=== PATIENT | male | born 1955 | race Caucasian/White ===

== ENCOUNTER 2016-12-06 17:11 | Inpatient (IN) | payer MEDICAID, OTHER ==
[~2016-12-06] VITALS: Ht 175.3 cm; Wt 68.0 kg
--- NOTE | 2016-12-06 17:41 | ER.PDOC ---
General Chief Complaint: Requesting Medical Care Stated Complaint: MEDICAL CLEARANCE Time seen by MD: 17:39 History of Present Illness Initial Comments Medical clearance to go to [facility] for Bipolar Severity: moderate Associated Symptoms: Depressed Allergies: Coded Allergies: acetaminophen (Verified Allergy, Mild, 12/06/16) PT CAN'T TAKE TYLENOL DUE TO CIRRHOSIS Past Medical History Medical History: COPD, GERD, hypertension Surgical History: hip, knee, shoulder Social History Smoking: non-smoker Alcohol Use: occassionally Drug Use: none Review of Systems Constitutional: no symptoms reported Respiratory: no symptoms reported Cardiovascular: no symptoms reported Genitourinary: no symptoms reported Psychiatric/Neurological: see HPI All Other Systems: Reviewed and Negative Physical Exam General Appearance: No acute distress, Alert Neck: Non-Tender, Full Range of Motion, Supple, Normal Inspection Respiratory: chest non-tender, lungs clear, normal breath sounds, no respiratory distress, no accessory muscle use Cardiovascular: Normal Peripheral Pulses, Regular Rate, Rhythm, No Edema, No Gallop, No JVD, No Murmur Gastrointestinal: Normal Bowel Sounds, No Organomegaly, No Pulsatile Mass, Non Tender, Soft Extremities: Non-Tender, Normal Range of Motion, No Evidence of Trauma, No Edema Neurological/Psychiatric: Alert, Normal Mood/Affect, Calm, consultant internship II-XII NML as Tested, Oriented x 3, Depressed Affect Appearance/Memory/Insight: Appropriate Appearance Behavior/Eye Contact/Speech: Cooperative Thoughts/Hallucinations: Normal Thought Pattern Results/Orders Results/Orders Laboratory Tests Test 12/06/16 17:50 White Blood Count 5.7 10^3/uL (4.5-11.0) Red Blood Count 4.50 10^6/uL (4.50-5.90) Hemoglobin 14.0 g/dL (13.9-16.3) Hematocrit 41.0 % (37.0-53.0) Mean Corpuscular Volume 91.1 fL (78-100) Mean Corpuscular Hemoglobin 31.1 pg (26-34) Mean Corpuscular Hemoglobin Concent 34.1 g/dL (33-37) Red Cell Distribution Width 14.3 % (11.5-14.5) Platelet Count 153 10^3/uL (150-400) Mean Platelet Volume 9.5 fL (7.8-11.0) Neutrophils (%) (Auto) 40.4 % (41.0-85.0) Lymphocytes (%) (Auto) 37.3 % (24.0-44.0) Monocytes (%) (Auto) 18.5 % (5.0-12.0) Neutrophils # (Auto) 2.3 10^3/uL (1.8-7.7) Lymphocytes # (Auto) 2.1 10^3/uL (1.0-4.8) Monocytes # (Auto) 1.1 10^3/uL (0.3-0.8) Absolute Immature Granulocyte (auto 0.01 10^3 u/L (0-2) Eosinophils % 3.3 % (0.0-5.0) Basophils % 0.3 % (0.0-0.2) Basophils # 0.0 10^3/uL (0.0-0.1) Eosinophil Count 0.2 10^3/uL (0.0-0.2) Prothrombin Time 11.6 SEC (9.8-11.9) Prothromb Time International Ratio 1.1 Activated Partial Thromboplast Time 26.7 SEC (24.67-30.72) Sodium Level 142 mmol/L (132-145) Potassium Level 2.7 mmol/L (3.6-5.2) Chloride Level 106.0 mmol/L (96-109) Carbon Dioxide Level 26.9 mmol/L (20.0-32) Anion Gap 11.8 Blood Urea Nitrogen 6 mg/dL (7-18) Creatinine 1.05 mg/dL (0.59-1.40) Estimated GFR () 86.3 (>/=60) BUN/Creatinine Ratio 5.0 Glucose Level 42 mg/dL (70-110) Hemoglobin A1c 5.6 % (4.2-6.2) Calcium Level 9.4 mg/dL (8.4-10.5) Total Bilirubin 0.8 mg/dL (0.2-1.0) Aspartate Amino Transf (AST/SGOT) 56 U/L (0-35) Alanine Aminotransferase (ALT/SGPT) 32 U/L (12-78) Alkaline Phosphatase 88 U/L (50-136) Total Creatine Kinase 44 U/L (39-308) Creatine Kinase MB 1.3 ng/mL (0.5-3.6) Troponin I < 0.02 ng/mL (0.00-0.05) C-Reactive Protein 0.42 mg/dL (0.00-5.00) Pro-B-Type Natriuretic Peptide 133 pg/mL (0-125) Total Protein 8.0 g/dL (6.4-8.2) Albumin 3.3 g/dL (3.4-5.0) Globulin 4.7 Triglycerides Level 63 mg/dL (20-200) Cholesterol Level 130 mg/dL (120-240) LDL Cholesterol, Calculated 76.4 VLDL Cholesterol 12.6 HDL Cholesterol 41 mg/dL (32-96) Cholesterol Ratio (LDL/HDL) 1.8 Cholesterol/HDL Ratio [id number] Thyroid Stimulating Hormone (TSH) 1.183 mIU/mL (0.358-3.740) Valproic Acid (Depakene) Level < 3 ug/mL (50-100) Juda Level < 0.20 mmol/L (0.6-1.2) Percent Immature Gran (Cell Imm) 0.20 % (0.00-0.50) EKG/XRAY/CT/US EKG: NSR XRAY: chest (Nothing acute) Departure Time of Disposition: 18:52 Disposition: 09 ADMITTED INPATIENT Impression: Primary Impression: Bipolar 1 disorder Additional Impression: Hypokalemia Condition: Stable Referrals: UNDEFINED,PHYSICIAN (PCP) PRIMARY CARE PROVIDER Comments Admitted by Dr. Meier, spoke to Dr. Vikash ABRAHAM,DULCE Porter MD Dec 06, 2016 17:41
[2016-12-06 17:55] LABS: BASOPHIL % 0.3 % (0.0-0.2); EOSINOPHIL # 0.2 10^3/uL (0.0-0.2); EOSINOPHIL % 3.3 % (0.0-5.0); LYMPHOCYTES # 2.1 10^3/uL (1.0-4.8); LYMPHOCYTES % 37.3 % (24.0-44.0); MEAN CELL HGB 31.1 pg (26-34); MEAN CELL HGB CONCENTRATION 34.1 g/dL (33-37); MEAN CORP VOLUME 91.1 fL (78-100); MEAN PLATELET VOLUME 9.5 fL (7.8-11.0); MONOCYTES # 1.1 10^3/uL (0.3-0.8); MONOCYTES % 18.5 % (5.0-12.0); NEUTROPHIL # 2.3 10^3/uL (1.8-7.7); NEUTROPHILS % 40.4 % (41.0-85.0); RED CELL DISTRIBUTION WIDTH 14.3 % (11.5-14.5); WHITE BLOOD CELL 5.7 10^3/uL (4.5-11.0)
[2016-12-06 18:21] LABS: ALANINE AMINOTRANSFERASE 32 U/L (12-78); ALKALINE PHOSPHATASE 88 U/L (50-136); ASPARTATE AMINO TRANSFERASE 56 U/L (0-35); CALCIUM 9.4 mg/dL (8.4-10.5); CARBON DIOXIDE 26.9 mmol/L (20.0-32); CHOLESTEROL 130 mg/dL (120-240); HDL CHOLESTEROL 41 mg/dL (32-96)
--- NOTE | 2016-12-06 18:22 | DIREP ---
PROCEDURE:CHEST 1 VIEW COMPARISON:[facility], CR, XRAY CHEST SINGLE VW, 11/14/2016, 09:24 AM. [facility], CR, XRAY CHEST SINGLE VW, 11/14/2016, 08:18 AM. [facility], CR, XRAY CHEST SINGLE VW, 03/26/2016, 03:06 PM. INDICATIONS:Medical clearance FINDINGS: LUNGS/PLEURA:Prominence of the interstitial markings, especially in the lung bases. No other significant pulmonary parenchymal abnormalities. No large effusions. VASCULATURE:Normal. Unremarkable pulmonary vasculature. CARDIAC:Normal. No cardiac silhouette abnormality or cardiomegaly. MEDIASTINUM:Normal. No visible mass or adenopathy. BONES:Normal. No fracture or visible bony lesion. OTHER:Negative. CONCLUSION:Prominent interstitial markings which could be acute or chronic. Otherwise no acute cardiopulmonary abnormalities. Dictated by: Darrel Crawford M.D. on 12/06/2016 at 06:19 PM
[2016-12-06 18:24] LABS: GLUCOSE 42 mg/dL (70-110)
[2016-12-06] MEDS ORDERED: POTASSIUM CHLORIDE ONE (18:52)
[2016-12-06] MEDS ORDERED: KLOR-CON 10 PO ONE (18:54)
--- NOTE | 2016-12-06 18:54 | PRM.ACF1 ---
Date and Time Date and Time Time: 18:54 Admission Criteria Forms PSYCHIATRIC DISORDERS Clinical Indications for Inpatient Care (Place 'X' for any and all applicable criteria): Ongoing inpatient care may be needed for 1 or more of the following(1)(2)(3)(4)( 6)(7)(8): [x ]I. Danger to self or others not manageable at lower level of care. [ ]II. Grave disability (eg, inability to perform self care necessary at lower level of care) [ ]III. Agitation or inappropriate behavior interfering with care for primary condition (eg, attempting to discontinue lines or drains prematurely, unable to cooperate with respiratory care) [ ]IV. Severe disability or disorder indicated by ALL of the following: [ ]a) Severe behavioral health disorder-related symptoms or condition indicated by 1 or more of the following: [ ]i) Severe problem with cognition, memory, judgment, or impulse control [ ]ii) Severe clinical manifestations (eg, hallucinations, delusions, other acute psychotic symptoms, sunny, extreme agitation or anxiety) [ ]b) Patient management at lower level of care is not feasible until acute intervention or modification is initiated. Extended stay beyond goal length of stay for the primary condition may be needed untilALLof the following are present(1)(2)(3)(4)722)(23): [ ]a) Danger to self or others is absent or manageable at lower level of care [ ]b) Behavior crisis management, including physical or chemical restraints, is required and is not available at a lower level of care. [ ]c) Behavioral symptoms (e.g., agitation, somnolence, inappropriate behavior) are present, and are not manageable at a lower level of care. [ ]d) Patient cannot understand follow-up treatment and crisis plan. [ ]e) Provider and supports are sufficiently available at lower level of care. [ ]f) Patient can participate (e.g., verify absence of plan for harm) and is in needed of monitoring. The original [facility] [employer] content created by [facility] has been revised. The portions of the content which have been revised are identified through the use of italic text, and [facility] has neither reviewed nor approved the modified material. All other unmodified content is copyright [facility]. Please see references footnoted in the original [facility] edition 2014 DULCE ABRAHAM MD Dec 06, 2016 18:54
[2016-12-06] MEDS ORDERED: KLOR-CON 10 PO STA (18:55)
--- NOTE | 2016-12-06 19:00 | NUR ---
STATUS PT SITTING UP, TALKATIVE, CONVERSATIONAL, [place] AIDE IN RM WITH PT
--- NOTE | 2016-12-06 19:39 | NUR ---
ADMIT PROCESS CALLED NEELAM OLIVA, SPOKE WITH KRISTEL BARR, MOMO TO CALL BACK CONCERNING ADMIT STATUS
[2016-12-06] MEDS ORDERED: ATIVAN ONE (19:59)
[2016-12-06] MEDS ORDERED: HALDOL ONE (20:00)
[2016-12-06] MEDS ORDERED: BENADRYL ONE (20:00)
[2016-12-06] MEDS ORDERED: IPRA0.2S34 IH (20:25)
[2016-12-06] MEDS ORDERED: DULO60CA7 PO (20:25)
[2016-12-06] MEDS ORDERED: ASCO500T8 PO (20:25)
[2016-12-06] MEDS ORDERED: FLUT1DIS3 IH (20:25)
[2016-12-06] MEDS ORDERED: LACT10SO PO (20:25)
[2016-12-06] MEDS ORDERED: PANT40TA5 PO (20:25)
[2016-12-06] MEDS ORDERED: TRIA15CR TP (20:25)
[2016-12-06] MEDS ORDERED: GABA300C10 PO (20:25)
[2016-12-06] MEDS ORDERED: QUET25TA5 PO (20:25)
[2016-12-06] MEDS ORDERED: FOLI1TAB21 PO (20:25)
[2016-12-06] MEDS ORDERED: AMIT100T PO (20:25)
[2016-12-06] MEDS ORDERED: LORA10TA75 PO (20:25)
[2016-12-06] MEDS ORDERED: ALBU2.5V2 IH (20:25)
[2016-12-06] MEDS ORDERED: MORP20SO PO (20:27)
--- NOTE | 2016-12-06 20:36 | NUR ---
DR NIDHI TERRELL CONFIRMED THAT HE HAD RECEIVED DOC TO DOC REPORT FROM DR MBA. ULLOA TO PROCEED WITH ADMIT. MOMO ROBERSON, KRISTEL UPDATED THAT MED REC WAS IN THE COMPUTER AND DOC TO DOC REPORT CONFIRMED. MOMO TO CALL BACK TO ER WHEN READY FOR ADMIT,
[2016-12-06 21:10] LABS: APPEARANCE,URINE CLEAR (CLEAR); BILIRUBIN,URINE NEGATIVE (NEGATIVE); UA COLOR YELLOW (YELLOW); UROBILINOGEN,URINE NORMAL (NEGATIVE)
--- NOTE | 2016-12-06 21:10 | NUR ---
MEAL PT PROVIDED WITH SODA AND MEAL.
[2016-12-06 21:28] LABS: UR BENZODIAZEPINE QUAL NEGATIVE (NEGATIVE); UR COCAINE QUAL NEGATIVE (NEGATIVE)
--- NOTE | 2016-12-06 21:30 | NUR ---
STATUS PT UPSET. YELLING. NOT WANTING TO STAY. WALKED OUT OF RM 8, ROMEL, HOUSE SUP WITH PT, PT WALKED OUT OF ER DOORS, [place] [employer] CONTACTED.
--- NOTE | 2016-12-06 21:50 | NUR ---
STATUS PT IN PARKING LOT, DR TERRELL, ROMEL, WAYNE SUP, TITUS, SECURITY AND [employer] [employer] WITH PT,
--- NOTE | 2016-12-06 22:00 | NUR ---
Behaviors pt arrived on unit order received to give Haldol 5mg, Ativan 2mg,Benadryl 25mg IM stat per who is on unit at this time pt received IM injections in right and left deltoid using aspetic tech. by Ramiro RN and Clarisa pt. is cursing and verbally abusive.
[2016-12-06] MEDS ORDERED: HALDOL IM STA (22:13)
[2016-12-06] MEDS ORDERED: THORAZINE ONE (22:13)
[2016-12-06] MEDS ORDERED: BENADRYL IM STA (22:13)
--- NOTE | 2016-12-06 22:25 | NUR ---
Behaviors pt cont to exhibit inappropriate behavior remains on unit and order received to give Thorazine 50mg IM now, Ramiro RN admiister IM injection in right deltoid. pt cont to curse at staff and police matron
[2016-12-06] MEDS ORDERED: ATIVAN IM PRN (22:30)
[2016-12-06] MEDS ORDERED: THORAZINE IM ONE (22:30)
--- NOTE | 2016-12-06 23:00 | NUR ---
ARRIVAL PT. ARRIVED ON UNIT AT 2200,IN HANDCUFFS,ACCOMPANIED BY THREE POLICE OFFICERS,TWO FRENCH COMBER'S DEPUTIES, TITUS,SOLAR BUSINESS DEVELOPER ,METEOROLOGY INSTRUCTOR ROMEL Caballero RN. AND DR. TERRELL. PT. WAS YELLING LOUDLY SAYING HE DID NOT WANT TO BE HERE AND THAT HE WAS NOT GOING TO GO INTO HIS ROOM. PT. WAS THREATENING TO HIT , KICK AND SPIT ON STAFF. PT. CURSING AND YELLING,MAKING INAPPROPRIATE SEXUAL REMARKS TO STAFF. PT. VERY INTRUSIVE AND NOT REDIRECTABLE. PER METEOROLOGY INSTRUCTOR,ROMEL Caballero RN PT. ELOPED FROM ER TO THE HOSPITAL PARKING LOT. POLICE WAS SUMMONED. PT. WAS AGGRESSIVE TO POLICE AND DEPUTIES. PT. WAS TASED TIMES TWO. WHEN PT. ON UNIT EXHIBITING INAPPROPRIATE BEHAVIORS STAT MEDICATIONS WAS ORDERED BY DR. TERRELL,WHO WAS ON PRESENT ON UNIT,SEE NURSE'S NOTED.PT. CONTINUED TO EXHIBIT SAME BEHAVIORS ABOVE AND ORDERED RECEIVED FROM DR. TERRELL TO PLACE PT. IN SECLUSION. PT. HIT AND KICKED THE CONLEY OF SECLUSION ROOM AND YELLED LOUDLY. DR. WARD WAS NOTIFIED OF PT.'S ARRIVAL,BEHAVIORS , SECLUSION AND VERBAL ORDERS RECEIVED FOR HALDOL 5 MG PO OR IM Q 6 HOURS PRN FOR AGITATION AND ATIVAN 1 MG PO OR IM Q 6 HOURS PRN FOR AGITATION. MAURICE OLMSTEAD RN, [employer]ODUCTS MAKER NOTIFIED OF PT. ARRIVAL , BEHAVIORS AND SECLUSION. Addendum: 12/07/16 at 0232 by Lis Torres RN RN DR. TERRELL PRESENT ON UNIT AND SAW PT. ONE HOUR AFTER BEING IN SECLUSION.
[2016-12-07] MEDS ORDERED: HALDOL PO PRN ×2 (00:30→12:00)
[2016-12-07] MEDS ORDERED: ATIVAN PO PRN ×2 (00:30→12:00)
[2016-12-07] MEDS ORDERED: HALDOL IM PRN ×3 (00:30→12:00)
[2016-12-07] MEDS ORDERED: ATIVAN IM PRN ×2 (01:00→12:00)
--- NOTE | 2016-12-07 02:44 | NUR ---
ADMISSION ASSESSMENT THIS NURSE WAS UNABLE TO COMPLETE PT.'S ADMISSION ASSESSMENT BECAUSE PT. WAS UNCOOPERATIVE AND NOT REDIRECTABLE. WILL REPORT THIS TO ONCOMING SHIFT IN AM.
[2016-12-07] MEDS: ASPIRIN PO STA ×2 (03:28→04:59)
[2016-12-07] MEDS: D5W-1/2NS/KCL 40MEQ 1,000 ML IV SCH ×2 (03:30→07:26)
[2016-12-07] MEDS ORDERED: MORPHINE SULFATE IV PRN (03:30)
[2016-12-07] MEDS ORDERED: MYLANTA PO PRN (03:30)
--- NOTE | 2016-12-07 04:08 | PCM.HP ---
History of Present Illness Reason for Visit: psychosis, threatening to self others Past Medical History Pulmonary: COPD Hepatobiliary: Cirrhosis, Hep A/B/C Psychiatric: Bipolar, Psychosis Past Social History Smoke: 1 pack per day Alcohol: heavy Drugs: Cocaine2, Other Lives: Homeless Travel Hx EBOLA RISK:Travel to/contact w: No Is pt experiencing any Ebola s: No Review of Systems Constitutional: Other (unable to attend due to violent threat to others) Allergies: Coded Allergies: acetaminophen (Verified Allergy, Mild, 12/06/16) PT CAN'T TAKE TYLENOL DUE TO CIRRHOSIS Scheduled Ascorbic Acid (Vitamin C), 500 MG PO DAILY, (Reported) Duloxetine Hcl (Cymbalta), 60 MG PO DAILY, (Reported) Fluticasone/Salmeterol (Advair 250-50 Diskus), 1 EACH IH BID, (Reported) Folic Acid (Folic Acid), 1 MG PO DAILY, (Reported) Gabapentin (Gabapentin), 300 MG PO HS, (Reported) Ipratropium [place] (Ipratropium [place]), 0.5 MG IH Q6HR, (Reported) Lactulose (Lactulose), 20 GM PO Q8HR, (Reported) Loratadine (Claritin), 10 MG PO DAILY, (Reported) Morphine Sulfate (Morphine Sulfate), 10 MG PO Q6, (Reported) Pantoprazole Sodium (Pantoprazole Sodium), 40 MG PO DAILY, (Reported) Triamcinolone Acetonide (Triamcinolone Acetonide), 15 GM TP BID, (Reported) Scheduled PRN Albuterol Sulfate (Albuterol Sulfate), 2.5 MG IH Q4 PRN for WHEEZING, (Reported) Discontinued Medications Amitriptyline Hcl (Amitriptyline Hcl), 100 MG PO HS, (Reported) Discontinued Reason: Discontinue Quetiapine Fumarate (Seroquel), 25 MG PO BID, (Reported) Discontinued Reason: Discontinue VTE VTE Risk Score VTE Risk: Score 0-1 = Low Risk (Aggressive mobilization; early ambulation; no VTE prophylaxis required) Score 2: Moderate Risk (Intermittent/Pneumatic Compression Device OR Lovenox/Heparin/Coumadin) Score 3-4: High Risk (Intermittent/Pneumatic Compression Device AND Lovenox/Heparin/Coumadin) Score > or =5: Highest Risk (Intermittent/Pneumatic Compression Device AND Lovenox/Heparin/Coumadin) Antico:Hep/LMWH/Coum/Xarelto: No Mechanical device ordered: No VTE VTE Present on Admission: No Currently receiving anticoagul: No Exam Vital Signs Vital Signs Date Time Temp Pulse Resp B/P (MAP) Pulse Ox O2 Delivery O2 Flow Rate FiO2 12/06/16 21:30 83 12 96 12/06/16 17:24 97.6 General Appearance: Alert, severe distress, Other (violent. Fighting with police officers. Handcuffed. In wheelchair.) HEENT: Other Respiratory: Other (Limited exam due to violent behavior) Cardiovascular: Other Abdominal: Other Extremities: No cyanosis, Other Neuro: Other Psych/Mental Status: Other Assessment/Plan Assessment/Plan Assessment/Plan Orders - GUERITA SUH MD Haloperidol Lactate (Haldol) (12/06/16 22:13) Lorazepam (Ativan) (12/06/16 22:30) Diphenhydramine Hcl (Benadryl) (12/06/16 22:13) Chlorpromazine Hcl (Thorazine) (12/06/16 22:30) Resuscitation Status (12/06/16 23:21) Social Service Consult (12/06/16 23:21) Hospitalist Consult (12/06/16 23:21) Folic Acid (Folic Acid) (12/07/16 09:00) Gabapentin (Neurontin) (12/07/16 21:00) Ipratropium [place] (Atrovent) (12/07/16 06:00) Lactulose (Cephulac) (12/07/16 06:00) Loratadine (Claritin) (12/07/16 09:00) Pantoprazole Sodium (Protonix) (12/07/16 09:00) (Nf) Ascorbic Acid (Vitamin C) (12/07/16 09:00) Creatine Kinase (12/07/16 03:28) Creatine Kinase (12/07/16 07:28) Creatine Kinase (12/07/16 11:28) Creatine Kinase (12/07/16 15:28) Basic Metabolic Panel (12/07/16 03:28) Basic Metabolic Panel (12/07/16 07:28) Basic Metabolic Panel (12/07/16 11:28) Basic Metabolic Panel (12/07/16 15:28) Urinalysis (12/07/16 03:28) Magnesium (12/07/16 03:28) Uric Acid (12/07/16 04:00) Uric Acid (12/07/16 08:00) Phosphorus (12/07/16 04:00) Phosphorus (12/07/16 08:00) Prealbumin (12/07/16 03:28) V/S Q4hr While Awake (12/07/16 03:28) Bedrest With Brp (12/07/16 03:28) Saline Lock (12/07/16 03:28) Saline Lock Flush (12/07/16 03:28) Ekg-Routine (12/07/16 03:28) Ekg-Routine (12/07/16 07:28) Creatine Kinase Mb (12/07/16 06:00) Creatine Kinase Mb (12/07/16 12:00) Creatine Kinase Mb (12/07/16 18:00) Lactate Dehydrogenase (12/07/16 06:00) Lactate Dehydrogenase (12/07/16 12:00) Troponin I (12/07/16 06:00) Troponin I (12/07/16 14:00) Xr Chest 1v (12/07/16 03:28) Mag Hydrox/Al Hydrox/Simeth (Mylanta) (12/07/16 03:30) Morphine Sulfate (Morphine Sulfate) (12/07/16 03:30) Potassium Chloride/D5-0.45nacl (D5w-1/2n (12/07/16 03:30) Aspirin (Aspirin) (12/07/16 03:28) Aspirin (Aspirin Ec) (12/07/16 09:00) Surgical Consult (12/07/16 03:51) First Vital Signs Date Time Temp Pulse Resp B/P (MAP) Pulse Ox O2 Delivery O2 Flow Rate FiO2 12/06/16 17:24 97.6 10 20 95 Last Vital Signs Date Time Temp Pulse Resp B/P (MAP) Pulse Ox O2 Delivery O2 Flow Rate FiO2 12/06/16 21:30 83 12 96 12/06/16 17:24 97.6 Laboratory Tests Test 12/06/16 17:50 12/06/16 18:55 12/06/16 20:17 White Blood Count 5.7 10^3/uL Red Blood Count 4.50 10^6/uL Hemoglobin 14.0 g/dL Hematocrit 41.0 % Mean Corpuscular Volume 91.1 fL Mean Corpuscular Hemoglobin 31.1 pg Mean Corpuscular Hemoglobin Concent 34.1 g/dL Red Cell Distribution Width 14.3 % Platelet Count 153 10^3/uL Mean Platelet Volume 9.5 fL Neutrophils (%) (Auto) 40.4 % Lymphocytes (%) (Auto) 37.3 % Monocytes (%) (Auto) 18.5 % Neutrophils # (Auto) 2.3 10^3/uL Lymphocytes # (Auto) 2.1 10^3/uL Monocytes # (Auto) 1.1 10^3/uL Absolute Immature Granulocyte (auto 0.01 10^3 u/L Eosinophils % 3.3 % Basophils % 0.3 % Basophils # 0.0 10^3/uL Eosinophil Count 0.2 10^3/uL Prothrombin Time 11.6 SEC Prothromb Time International Ratio 1.1 Activated Partial Thromboplast Time 26.7 SEC Sodium Level 142 mmol/L Potassium Level 2.7 mmol/L Chloride Level 106.0 mmol/L Carbon Dioxide Level 26.9 mmol/L Anion Gap 11.8 Blood Urea Nitrogen 6 mg/dL Creatinine 1.05 mg/dL Estimated GFR () 86.3 BUN/Creatinine Ratio 5.0 Glucose Level 42 mg/dL Hemoglobin A1c 5.6 % Calcium Level 9.4 mg/dL Total Bilirubin 0.8 mg/dL Aspartate Amino Transf (AST/SGOT) 56 U/L Alanine Aminotransferase (ALT/SGPT) 32 U/L Alkaline Phosphatase 88 U/L Total Creatine Kinase 44 U/L Creatine Kinase MB 1.3 ng/mL Troponin I < 0.02 ng/mL C-Reactive Protein 0.42 mg/dL Pro-B-Type Natriuretic Peptide 133 pg/mL 108 pg/mL Total Protein 8.0 g/dL Albumin 3.3 g/dL Globulin 4.7 Triglycerides Level 63 mg/dL Cholesterol Level 130 mg/dL LDL Cholesterol, Calculated 76.4 VLDL Cholesterol 12.6 HDL Cholesterol 41 mg/dL Cholesterol Ratio (LDL/HDL) 1.8 Cholesterol/HDL Ratio 3.199453 Thyroid Stimulating Hormone (TSH) 1.183 mIU/mL Valproic Acid (Depakene) Level < 3 ug/mL Dutton Level < 0.20 mmol/L Percent Immature Gran (Cell Imm) 0.20 % Urine Collection Type UNKNOWN Urine Color YELLOW Urine Appearance CLEAR Urine Bilirubin NEGATIVE MG/DL Urine Ketones NEGATIVE Urine Specific [place] 1.010 Urine pH 6 Urine Protein NEGATIVE Urine Urobilinogen NORMAL Urine Nitrate NEGATIVE Urine Leukocyte Esterase NEGATIVE Urine Blood NEGATIVE Urine Glucose NORMAL Opiates Screen POSITIVE Barbiturate Screen NEGATIVE Urine Tricyclic Antidepressants NEGATIVE Phencyclidine (PCP) Screen NEGATIVE Amphetamines Screen NEGATIVE Benzodiazepines Screen NEGATIVE Cocaine Screen NEGATIVE Ur Tetrahydrocannabinol (THC) Scrn NEGATIVE Current Medications Medications (Trade) Dose Ordered Sig/Mohini Route PRN Reason Start Time Stop Time Status Last Admin Dose Admin Potassium Chloride (Potassium Chloride) 40 meq STK-MED ONCE .ROUTE 12/06/16 18:52 12/06/16 18:54 DC Potassium Chloride (Klor-Con 10) 10 meq STK-MED ONCE PO 12/06/16 18:54 12/06/16 18:55 DC Potassium Chloride (Klor-Con 10) 40 meq STAT STAT PO 12/06/16 18:55 12/06/16 18:57 DC 12/06/16 18:58 Lorazepam (Ativan) 2 mg STK-MED ONCE .ROUTE 12/06/16 19:59 12/06/16 22:00 DC Haloperidol Lactate (Haldol) 5 mg STK-MED ONCE .ROUTE 12/06/16 20:00 12/06/16 22:01 DC Diphenhydramine HCl (Benadryl) 50 mg STK-MED ONCE .ROUTE 12/06/16 20:00 12/06/16 22:01 DC Chlorpromazine HCl (Thorazine) 25 mg STK-MED ONCE .ROUTE 12/06/16 22:13 12/06/16 22:14 DC Haloperidol Lactate (Haldol) 5 mg STAT STAT IM 12/06/16 22:13 12/06/16 22:14 UNV 12/06/16 22:19 Lorazepam (Ativan) 2 mg Q4HR PRN IM AGITATION 12/06/16 22:30 01/05/17 22:29 UNV 12/06/16 22:18 Diphenhydramine HCl (Benadryl) 25 mg STAT STAT IM 12/06/16 22:13 12/06/16 22:14 UNV 12/06/16 22:18 Chlorpromazine HCl (Thorazine) 50 mg STAT ONCE IM 12/06/16 22:30 12/06/16 22:31 UNV 12/06/16 22:26 Quetiapine Fumarate (Seroquel) 50 mg BID PO 12/07/16 09:00 01/06/17 08:59 UNV Amitriptyline HCl (Elavil) 100 mg HS PO 12/07/16 21:00 01/06/17 20:59 UNV Haloperidol (Haldol) 5 mg Q6 PRN PO AGITATION 12/07/16 00:30 01/06/17 00:29 UNV Haloperidol Lactate (Haldol) 5 mg Q6 PRN IM AGITATION 12/07/16 00:30 01/06/17 00:29 UNV Lorazepam (Ativan) 1 mg Q6HR PRN PO AGITATION 12/07/16 00:30 01/06/17 00:29 UNV Haloperidol Lactate (Haldol) 1 mg Q6 PRN IM AGITATION 12/07/16 00:30 01/06/17 00:29 UNV Lorazepam (Ativan) 1 mg Q6 PRN IM AGITATION 12/07/16 01:00 01/06/17 00:59 UNV Folic Acid (Folic Acid) 1 mg DAILY PO 12/07/16 09:00 01/06/17 08:59 UNV Gabapentin (Neurontin) 300 mg HS PO 12/07/16 21:00 01/06/17 20:59 UNV Ipratropium [place] (Atrovent) 0.5 mg Q6HR IH 12/07/16 06:00 01/06/17 05:59 UNV Lactulose (Cephulac) 20 gm Q8HR PO 12/07/16 06:00 01/06/17 05:59 UNV Loratadine (Claritin) 10 mg DAILY PO 12/07/16 09:00 01/06/17 08:59 UNV Pantoprazole Sodium (Protonix) 40 mg DAILY PO 12/07/16 09:00 01/06/17 08:59 UNV Al Hydroxide/Mg Hydroxide (Mylanta) 30 ml Q2HR PRN PO heartburn 12/07/16 03:30 01/06/17 03:29 UNV Morphine Sulfate (Morphine Sulfate) 2 mg PRN PRN IV chest pain 12/07/16 03:30 01/06/17 03:29 UNV Potassium Chloride/Dextrose/ Sod Cl 1,000 ml @ 250 mls/hr Q4H IV 12/07/16 03:30 12/07/16 11:29 UNV Aspirin (Aspirin) 324 mg STAT STAT PO 12/07/16 03:28 12/07/16 03:29 UNV Aspirin (Aspirin Ec) 81 mg DAILY PO 12/07/16 09:00 01/06/17 08:59 UNV Problems: (1) Psychosis Status: Acute ICD Code: F29 - Unspecified psychosis not due to a substance or known physiological condition SNOMED: 72609787 (2) Bipolar 1 disorder Status: Acute ICD Code: F31.9 - Bipolar disorder, unspecified SNOMED: 208183042 (3) Severe protein-calorie malnutrition Status: Acute ICD Code: E43 - Unspecified severe protein-calorie malnutrition SNOMED: 786444703 (4) Polysubstance abuse Permanent Comment: history of cocaine and other substance abuse per medical records. On the submission is screening drug screen test only showed opioids. However the screening test is not particularly reliable Last Edited By: Guerita Suh MD on Dec 07, 2016 04:18 Status: Acute ICD Code: F19.10 - Other psychoactive substance abuse, uncomplicated SNOMED: 083667788 (5) Hypokalemia Permanent Comment: noted in the emergency room. Patient was given potassium for repletion. Recheck BMP when it is safe to do so. Last Edited By: Guerita Suh MD on Dec 07, 2016 04:18 Status: Acute ICD Code: E87.6 - Hypokalemia SNOMED: 33875173 (6) Violent behavior Status: Acute ICD Code: R45.6 - Violent behavior SNOMED: 951778466 (7) Behavior problem, adult Status: Acute ICD Code: F69 - Unspecified disorder of adult personality and behavior SNOMED: 103324855666735 (8) Threatening to self Permanent Comment: psychotic. Does not know limits. Aggressive and threatening to everyone around him. fought with police officers. Last Edited By: Guerita Suh MD on Dec 07, 2016 04:17 Status: Acute SEVERITY: SEVERE PERSISTENT ICD Code: R45.89 - Other symptoms and signs involving emotional state SNOMED: 487139912 (9) Threatening to others Status: Acute SEVERITY: SEVERE PERSISTENT ICD Code: R45.89 - Other symptoms and signs involving emotional state SNOMED: 225930868 (10) At risk for elopement Status: Acute SEVERITY: SEVERE PERSISTENT COMPLICATION TYPE: W/ ACUTE EXACERBATION ICD Code: Z91.89 - Other specified personal risk factors, not elsewhere classified SNOMED: 995884557 (11) Foreign body (FB) in soft tissue Status: Acute ICD Code: M79.5 - Residual foreign body in soft tissue SNOMED: 270809150 (12) Electric shock caused by Taser used in legal intervention Permanent Comment: tasered deployed twice in what appeared to be the chest area Last Edited By: Guerita Suh MD on Dec 07, 2016 04:15 Status: Acute ICD Code: T75.4XXA - Electrocution, initial encounter; - Legal intervention involving other specified means, suspect injured, initial encounter SNOMED: 442456070, 564368938, 022929476 (13) Hypoglycemia Permanent Comment: questionable hypoglycemia [address] Rodríguez recheck one of the safe to do so. Give IV fluids with D5 half normal saline with the safe to do so Last Edited By: Guerita Suh MD on Dec 07, 2016 04:16 Status: Acute ICD Code: E16.2 - Hypoglycemia, unspecified SNOMED: 699976411 (14) Cirrhosis of liver without ascites Status: Chronic ICD Code: K74.60 - Unspecified cirrhosis of liver SNOMED: 64589759 (15) Chronic hepatitis B with cirrhosis Status: Chronic ICD Code: B18.1 - Chronic viral hepatitis B without delta-agent; K74.60 - Unspecified cirrhosis of liver SNOMED: 45911514, 509356252 Patient History: Problem Qualifiers (1) Electric shock caused by Taser used in legal intervention: Encounter type: initial encounter Qualified Codes: T75.4XXA - Electrocution, initial encounter; Y35.3A - Legal intervention involving other specified means , suspect injured, initial encounter GUERITA SUH MD Dec 07, 2016 04:08
[2016-12-07 05:08] VITALS: BP 103/57
[2016-12-07 05:10] LABS: CALCIUM 8.8 mg/dL (8.4-10.5); CARBON DIOXIDE 23.2 mmol/L (20.0-32); GLUCOSE 109 mg/dL (70-110)
--- NOTE | 2016-12-07 05:34 | NUR ---
rest Pt. resting in bed with eyes closed at this time Radiology ,Iva,has been notified of stat chest xr order.
[2016-12-07] MEDS: ATROVENT IH SCH ×2 (05:48→06:00)
[2016-12-07] MEDS: CEPHULAC PO SCH ×3 (05:48→13:50)
--- NOTE | 2016-12-07 06:07 | NUR ---
hep lock Hep lock attempted by Anat Caballero RN. times two unsuccessfully using aseptic technique. Pt. cursed and yelled at nurse .
--- NOTE | 2016-12-07 06:12 | NUR ---
Medication pt refused po medication this a.m. also he refused his breathing treatment only would take a little of treatment Coco HUMPHRIES is aware
--- NOTE | 2016-12-07 06:17 | DIREP ---
PROCEDURE:CHEST 1 VIEW COMPARISON:[facility], CR, XRAY CHEST SINGLE VW, 11/14/2016, 08:18 AM. [facility], CR, XRAY CHEST SINGLE VW, 03/26/2016, 03:06 PM. [facility], CR, XRAY CHEST SINGLE VW, 12/06/2016, 05:03 PM. INDICATIONS:foreign body taser hook FINDINGS: LUNGS/PLEURA:Coarsened markings throughout the lungs may signify chronic interstitial changes or interstitial infiltrates. No radiopaque foreign bodies are seen. VASCULATURE:Normal. Unremarkable pulmonary vasculature. CARDIAC:Normal. No cardiac silhouette abnormality or cardiomegaly. MEDIASTINUM:Normal. No visible mass or adenopathy. BONES:Normal. No fracture or visible bony lesion. OTHER:Negative. CONCLUSION: 1. Stable chronic interstitial changes throughout the lungs that could that could be acute or chronic. 2. No focal consolidation. 3. No radiopaque foreign bodies are visible. Dictated by: Miguel Angel Salgado MD on 12/07/2016 at 06:15 AM
--- NOTE | 2016-12-07 06:29 | NUR ---
RESP. TREATMENT PT. REFUSED BREATHING TREATMENT. YELLED AT NURSE AND SAID GET OUT OF HERE.
--- NOTE | 2016-12-07 06:31 | NUR ---
RESP. ASSESSMENT PT. REFUSED RESP. ASSESSMENT THIS SHIFT.
[2016-12-07] MEDS ORDERED: FOLIC ACID PO ONE (07:06)
[2016-12-07] MEDS ORDERED: ASPIRIN EC ONE (07:06)
[2016-12-07] MEDS ORDERED: CLARITIN ONE (07:06)
[2016-12-07] MEDS ORDERED: SEROQUEL ONE (07:06)
[2016-12-07] MEDS ORDERED: PROTONIX PO ONE (07:06)
--- NOTE | 2016-12-07 07:35 | NUR ---
PT REFUSED EKG, CALLED DR. TERRELL AT [id number] AND INFORMED HIM OF PT REFUSAL
[2016-12-07 08:26] LABS: APPEARANCE,URINE CLEAR (CLEAR); BILIRUBIN,URINE NEGATIVE (NEGATIVE); UA COLOR YELLOW (YELLOW); UROBILINOGEN,URINE NORMAL (NEGATIVE)
--- NOTE | 2016-12-07 08:28 | NUR ---
[facility]: SW CONTACTED [facility] CRISIS LINE FOR EVALUATION TO [facility]. SS TO FOLLOW
[2016-12-07 08:35] VITALS: BP 96/60
--- NOTE | 2016-12-07 08:39 | NUR ---
Pain Dr. Suh called and notified of pt reporting pain to BLE, no answer, left voicemail. Pt offered warm-compress, denies @ this time. Pt denies further intervention @ this time, requests "a pain pill."
--- NOTE | 2016-12-07 08:53 | NUR ---
Dr. Suh Received orders from Dr. Suh for OT PO Morphine, see EMAR.
[2016-12-07 08:54] LABS: CALCIUM 8.7 mg/dL (8.4-10.5); CARBON DIOXIDE 22.4 mmol/L (20.0-32)
[2016-12-07] MEDS ORDERED: CLARITIN PO SCH (09:00)
[2016-12-07] MEDS ORDERED: MS CONTIN PO ONE (09:00)
[2016-12-07] MEDS ORDERED: ASPIRIN EC PO SCH (09:00)
[2016-12-07] MEDS ORDERED: PROTONIX PO SCH (09:00)
[2016-12-07] MEDS ORDERED: VITAMIN C PO SCH (09:00)
[2016-12-07] MEDS ORDERED: SEROQUEL PO SCH (09:00)
[2016-12-07] MEDS ORDERED: FOLIC ACID PO SCH (09:00)
--- NOTE | 2016-12-07 09:00 | NUR ---
DISCHARGE PLAN: [facility]ELODY [facility] TO INFORM THAT PATIENT IS IN NEED OF A HIGHER LEVEL OF CARE AT THIS TIME AND WILL NEED TO BE COURT COMMITTED INTO A STATE HOSPITAL. JUDGE HIGGINS DIRECTED HIS CONCRETE PUDDLER TO CONTACT THE [facility] JUDGE JUDGE HIGGINS DOES NOT HAVE JURISDICTION OVER THE PATIENT IN [facility] JUDGE CONTACTED [facility] POLICE DEPARTMENT TO ORDER PATIENT TO BE TRANSPORTED BY [facility] CORRESPONDENCE SCHOOL INSTRUCTOR WHO ISSUED THE EMERGENCY SKILLED NURSING ORDER (SHREYAS) ANGELLA PALOMINO, TO A PSYCHIATRIC FACILITY THAT TAKES PATIENTS IN NEED OF A HIGHER LEVEL CARE DUE TO THE LEVEL OF AGGRESSION AND PSYCHOSIS FROM THE TIME OF ARRIVAL INTO THE ER.
--- NOTE | 2016-12-07 09:55 | NUR ---
VSEE Pt was seen via telemed by Dr. Meier. Pt responds to some questions asked, irritable. Received orders to change PRN ativan and haldol, see EMAR.
--- NOTE | 2016-12-07 12:01 | NUR ---
Refusal Pt was asked by Tony Crawford CNA if he would like to come out and eat lunch tray, pt became agitated and yelled, "I'm not eating because I'm going home! Fuck this place and screw it all!" Pt now lying in supine position, chest rise and fall symmetrical, nonlabored. Within line of sight from nurse's station.
--- NOTE | 2016-12-07 12:10 | HPH ---
ADMIT DATE: 12/07/2016 ADMISSION PSYCHIATRIC NOTE TIME: 9:20-10:10. CHIEF COMPLAINT: Bipolar, manic and assaultive. HISTORY OF PRESENT ILLNESS: The patient is a 61-year-old male who was admitted to the hospital from the [facility]. The information taken prior to his admission was that he has a history of bipolar disorder, was bipolar manic and psychotic, no information was given by the group home to high school social science teacher at [facility] or [facility] that he was violent in any way or that he had been assaultive physically. It turned out this gentleman was violent and agitated, labile in the Emergency Room requiring 5 police officers to restrain him and requiring being tased twice. None of this information was conveyed to this physician until this morning of 12/07/2016 with regard to the level of assaultiveness. A meeting was held this morning with the detective chief, the TRACK VEHICLE REPAIRER, myself, high school social science teacher to try to determine what to do with this patient should he become violent and assaultive again as he cannot be on the [facility] unit and representing a danger with regard to assaultive behavior with other geriatric patients around. It was decided that we would try to get this gentleman in the [facility] until he could go to the [facility] and we have already contacted [facility] to come and evaluate this man. On my evaluation this morning, he was bed, angry, agitated, labile, mood felt to be elevated, affect expansive. Insight and judgment poor, angry, volunteering very little information about his prior psychiatric history. Somewhat grandiose and delusional. He does have a history of polysubstance abuse, specifically cocaine and alcohol. None of this information was conveyed from the group home to us either. At this point, the patient represents a danger or risk to other individuals on the unit and the staff and needs to go to the [facility] as soon as possible and we have done everything that we can to contact [facility] to evaluate this patient emergently or very quickly for transfer to the [facility]. PAST MEDICAL HISTORY: 1. Hypertension. 2. Hepatic disease. 3. COPD. 4. Gastroesophageal reflux disease. ALLERGIES: POSSIBLY TYLENOL. SOCIAL HISTORY: The patient volunteers very little information. He reports that he was in the [facility]. He is and has no children, he is disabled, alcohol was heavy in the past and denies the use of tobacco. OBJECTIVE: VITAL SIGNS: Temperature 97.4, pulse 107, respirations 18, oxygen saturation 91% and blood pressure 96/50. REVIEW OF SYSTEMS: CONSTITUTIONAL: Was very difficult as the patient was minimally cooperative. HEENT: Appears to be normal. RESPIRATORY: No shortness of breathing, coughing, or wheezing. GASTROINTESTINAL: No nausea, vomiting, diarrhea or constipation. GENITOURINARY: No difficulty with urination. MUSCULOSKELETAL: Muscle pain in the lower extremity, leg. No swelling or edema. NEUROLOGIC: Otherwise normal. ENDOCRINE: Otherwise normal. MENTAL STATUS EXAMINATION: Reveals a very agitated, labile male with increased psychomotor activity. Concentration and memory poor. Speech rapid. Language normal. Orientation is impaired. Insight and judgment are poor. Thought is illogical, positive delusional thought, denying suicidal or homicidal intent or ideation at this time. ASSESSMENT: AXIS I: 1. Bipolar disorder, manic, psychotic: 2. History of polysubstance abuse. AXIS II: Deferred. AXIS III: Refer to past medical history. AXIS IV: Stress of mental illness. AXIS V: Current global assessment of functioning of 25. TREATMENT PLAN: 1. This patient was admitted to the [facility] with inadequate amount of information being conveyed from the group home to the Emergency Room and to this physician about this patient's violent behavior. We are doing the best that we can in the hospital situation that we have. He was resting comfortably in bed at this time. 2. Medications include Seroquel 50 mg twice a day, Elavil 100 mg at bedtime, Neurontin 300 mg at bedtime, lactulose, Protonix, Haldol 5 mg q.4 hours p.r.n. psychotic agitation and Ativan 1 mg q.4 hours p.r.n. psychosis or agitation. 3. We are trying to expedite getting this patient to the [facility] at this time as he is not a candidate for the [facility] and we will be contacting the police as well as the [facility] and [facility] to try to get them to help us in expedite, getting this patient somewhere where he represents no danger or risk to the people around him. Hernan Meier MD DR: JEMMA/abbey JOB# [id number]
--- NOTE | 2016-12-07 12:56 | NUR ---
Status Pt cont to refuse physical assessment, uncooperative @ this time, remains irritable when approached by staff.
--- NOTE | 2016-12-07 13:50 | NUR ---
REFUSE MEDICATION PT REFUSED LACTULOSE. IN THE LACTULOSE WAS HALDOL AND ATIVAN PT IS GETTING READY TO BE PICKED UP TO BE TAKEN BACK TO [facility]. PT SAID I AM NOT TAKING ANY MEDICINE. I DON'T TAKE ANY AND I AM NOT GOING TO TAKE IT NOW. REPORTED TO RN.
[2016-12-07] MEDS ORDERED: QUET25TA5 PO (14:02)
[2016-12-07] MEDS ORDERED: AMIT50TA PO (14:02)
--- NOTE | 2016-12-07 14:09 | PRM.DC ---
Discharge Summary Date of Arrival on Unit: Dec 06, 2016 Reason for Visit: psychosis, threatening to self others Additional Comments 61 y/o M with PMHx of Bipolar D/O who was recovering and undergoing rehab from hip surgery at an outside long-term was admitted involuntarily to the [facility] because he was psychotic, verbally assaultive, and thought to be a danger to himself and others. He underwent medical clearance and passed medical clearance in the ER yesterday, but when it was time to transport him upstairs to the [facility] unit, the patient became agitated and ran out of the hospital. Police were called and [facility] deputies and [place] [employer] responded to the call. The patient became violent and had to be tased twice. Eventually numerous police officers restrained the patient and brought him to the [facility] unit. He continued to threaten police officers and staff and was given Haldol 5 mg IM x 1, Ativan 2mg IM x 1, Thorazine 50 mg IM x 1 and transferred to isolated seclusion. The patient calmed down and then rested overnight. It was not possible to perform and EKG, CXR, labs, or give fluids while the patient was agitated and it was not safe to open the seclusion room due to inadequate security personal and danger to [facility] staff. CXR was normal except for evidence of chronic lung disease. His last 97.4F 107HR, O2 sat 93%, BP 96/60, RR 18. His EKG was done and showed Tachycardia sinus rhythm and no STEMI. His Cardiac enzymes were normal. Because he was hypokalemic and hypomagnesemic, he was offered potassium and magnesium electrolyte repletion but the patient refused. The patient also refused IV fluids. He is medically cleared for discharge to an appropriate psychiatric hospital. His is discharged to [facility] [employer] custody on an SHREYAS. General: Alert, Cooperative Results(Labs/Rad) Orders - GUERITA SUH MD Resuscitation Status (12/06/16 23:21) Social Service Consult (12/06/16 23:21) Hospitalist Consult (12/06/16 23:21) Folic Acid (Folic Acid) (12/07/16 09:00) Gabapentin (Neurontin) (12/07/16 21:00) Lactulose (Cephulac) (12/07/16 06:00) Loratadine (Claritin) (12/07/16 09:00) Pantoprazole Sodium (Protonix) (12/07/16 09:00) Ascorbic Acid (Vitamin C) (12/07/16 09:00) Creatine Kinase (12/07/16 11:28) Basic Metabolic Panel (12/07/16 11:28) Prealbumin (12/07/16 03:28) Xr Chest 1v (12/07/16 03:28) Aspirin (Aspirin Ec) (12/07/16 09:00) Ipratropium [place] (Atrovent) (12/07/16 15:00) First Vital Signs Date Time Temp Pulse Resp B/P (MAP) Pulse Ox O2 Delivery O2 Flow Rate FiO2 12/06/16 17:24 97.6 10 20 95 12/07/16 05:08 103/57 (72) Room Air Last Vital Signs Date Time Temp Pulse Resp B/P (MAP) Pulse Ox O2 Delivery O2 Flow Rate FiO2 12/07/16 08:35 97.4 107 18 96/60 (72) 91 Room Air Intake and Output 12/07/16 07:00 # Voids 1 Laboratory Tests Test 12/06/16 17:50 12/06/16 18:55 12/06/16 20:17 12/07/16 03:28 White Blood Count 5.7 10^3/uL Red Blood Count 4.50 10^6/uL Hemoglobin 14.0 g/dL Hematocrit 41.0 % Mean Corpuscular Volume 91.1 fL Mean Corpuscular Hemoglobin 31.1 pg Mean Corpuscular Hemoglobin Concent 34.1 g/dL Red Cell Distribution Width 14.3 % Platelet Count 153 10^3/uL Mean Platelet Volume 9.5 fL Neutrophils (%) (Auto) 40.4 % Lymphocytes (%) (Auto) 37.3 % Monocytes (%) (Auto) 18.5 % Neutrophils # (Auto) 2.3 10^3/uL Lymphocytes # (Auto) 2.1 10^3/uL Monocytes # (Auto) 1.1 10^3/uL Absolute Immature Granulocyte (auto 0.01 10^3 u/L Eosinophils % 3.3 % Basophils % 0.3 % Basophils # 0.0 10^3/uL Eosinophil Count 0.2 10^3/uL Prothrombin Time 11.6 SEC Prothromb Time International Ratio 1.1 Activated Partial Thromboplast Time 26.7 SEC Sodium Level 142 mmol/L Potassium Level 2.7 mmol/L Chloride Level 106.0 mmol/L Carbon Dioxide Level 26.9 mmol/L Anion Gap 11.8 Blood Urea Nitrogen 6 mg/dL Creatinine 1.05 mg/dL Estimated GFR () 86.3 BUN/Creatinine Ratio 5.0 Glucose Level 42 mg/dL Hemoglobin A1c 5.6 % Calcium Level 9.4 mg/dL Total Bilirubin 0.8 mg/dL Aspartate Amino Transf (AST/SGOT) 56 U/L Alanine Aminotransferase (ALT/SGPT) 32 U/L Alkaline Phosphatase 88 U/L Total Creatine Kinase 44 U/L Creatine Kinase MB 1.3 ng/mL Troponin I < 0.02 ng/mL C-Reactive Protein 0.42 mg/dL Pro-B-Type Natriuretic Peptide 133 pg/mL 108 pg/mL Total Protein 8.0 g/dL Albumin 3.3 g/dL Globulin 4.7 Triglycerides Level 63 mg/dL Cholesterol Level 130 mg/dL LDL Cholesterol, Calculated 76.4 VLDL Cholesterol 12.6 HDL Cholesterol 41 mg/dL Cholesterol Ratio (LDL/HDL) 1.8 Cholesterol/HDL Ratio [id number] Thyroid Stimulating Hormone (TSH) 1.183 mIU/mL Valproic Acid (Depakene) Level < 3 ug/mL Emigrant Level < 0.20 mmol/L Percent Immature Gran (Cell Imm) 0.20 % Urine Collection Type UNKNOWN VOID Urine Color YELLOW YELLOW Urine Appearance CLEAR CLEAR Urine Bilirubin NEGATIVE MG/DL NEGATIVE MG/DL Urine Ketones NEGATIVE NEGATIVE Urine Specific [place] 1.010 1.010 Urine pH 6 6.5 Urine Protein NEGATIVE NEGATIVE Urine Urobilinogen NORMAL NORMAL Urine Nitrate NEGATIVE NEGATIVE Urine Leukocyte Esterase NEGATIVE NEGATIVE Urine Blood NEGATIVE NEGATIVE Urine Glucose NORMAL NORMAL Opiates Screen POSITIVE Barbiturate Screen NEGATIVE Urine Tricyclic Antidepressants NEGATIVE Phencyclidine (PCP) Screen NEGATIVE Amphetamines Screen NEGATIVE Benzodiazepines Screen NEGATIVE Cocaine Screen NEGATIVE Ur Tetrahydrocannabinol (THC) Scrn NEGATIVE Test 12/07/16 04:30 12/07/16 08:25 Sodium Level 143 mmol/L 143 mmol/L Potassium Level 2.9 mmol/L 3.0 mmol/L Chloride Level 106.0 mmol/L 109.0 mmol/L Carbon Dioxide Level 23.2 mmol/L 22.4 mmol/L Glucose Level 109 mg/dL 104 mg/dL Blood Urea Nitrogen 6 mg/dL 5 mg/dL Creatinine 0.93 mg/dL 0.89 mg/dL Calcium Level 8.8 mg/dL 8.7 mg/dL Anion Gap 16.7 14.6 Estimated GFR () 99.3 104.5 BUN/Creatinine Ratio 6.0 5.0 Uric Acid 7.2 mg/dL 7.3 mg/dL Phosphorus Level 2.9 mg/dL 2.9 mg/dL Magnesium Level 1.6 mg/dL Lactate Dehydrogenase 206 U/L Total Creatine Kinase 535 U/L 490 U/L Creatine Kinase MB 3.7 ng/mL Troponin I < 0.02 ng/mL Serum Alcohol < 3 mg/dL Current Medications Medications (Trade) Dose Ordered Sig/Mohini Route PRN Reason Start Time Stop Time Status Last Admin Dose Admin Potassium Chloride (Potassium Chloride) 40 meq STK-MED ONCE .ROUTE 12/06/16 18:52 12/06/16 18:54 DC Potassium Chloride (Klor-Con 10) 10 meq STK-MED ONCE PO 12/06/16 18:54 12/06/16 18:55 DC Potassium Chloride (Klor-Con 10) 40 meq STAT STAT PO 12/06/16 18:55 12/06/16 18:57 DC 12/06/16 18:58 Lorazepam (Ativan) 2 mg STK-MED ONCE .ROUTE 12/06/16 19:59 12/06/16 22:00 DC Haloperidol Lactate (Haldol) 5 mg STK-MED ONCE .ROUTE 12/06/16 20:00 12/06/16 22:01 DC Diphenhydramine HCl (Benadryl) 50 mg STK-MED ONCE .ROUTE 12/06/16 20:00 12/06/16 22:01 DC Chlorpromazine HCl (Thorazine) 25 mg STK-MED ONCE .ROUTE 12/06/16 22:13 12/06/16 22:14 DC Haloperidol Lactate (Haldol) 5 mg STAT STAT IM 12/06/16 22:13 12/07/16 09:05 DC 12/06/16 22:19 Lorazepam (Ativan) 2 mg Q4HR PRN IM AGITATION 12/06/16 22:30 12/07/16 09:56 DC 12/06/16 22:18 Diphenhydramine HCl (Benadryl) 25 mg STAT STAT IM 12/06/16 22:13 12/07/16 09:05 DC 12/06/16 22:18 Chlorpromazine HCl (Thorazine) 50 mg STAT ONCE IM 12/06/16 22:30 12/07/16 09:05 DC 12/06/16 22:26 Quetiapine Fumarate (Seroquel) 50 mg BID PO 12/07/16 09:00 01/06/17 08:59 12/07/16 10:10 Amitriptyline HCl (Elavil) 100 mg HS PO 12/07/16 21:00 01/06/17 20:59 Haloperidol (Haldol) 5 mg Q6 PRN PO AGITATION 12/07/16 00:30 12/07/16 09:53 DC Haloperidol Lactate (Haldol) 5 mg Q6 PRN IM AGITATION 12/07/16 00:30 12/07/16 09:53 DC Lorazepam (Ativan) 1 mg Q6HR PRN PO AGITATION 12/07/16 00:30 12/07/16 09:53 DC Haloperidol Lactate (Haldol) 1 mg Q6 PRN IM AGITATION 12/07/16 00:30 01/06/17 00:29 UNV Lorazepam (Ativan) 1 mg Q6 PRN IM AGITATION 12/07/16 01:00 12/07/16 09:53 DC Folic Acid (Folic Acid) 1 mg DAILY PO 12/07/16 09:00 01/06/17 08:59 12/07/16 10:10 Gabapentin (Neurontin) 300 mg HS PO 12/07/16 21:00 01/06/17 20:59 Ipratropium [place] (Atrovent) 0.5 mg Q6HR IH 12/07/16 06:00 12/07/16 09:06 DC Lactulose (Cephulac) 20 gm Q8HR PO 12/07/16 06:00 01/06/17 05:59 Loratadine (Claritin) 10 mg DAILY PO 12/07/16 09:00 01/06/17 08:59 12/07/16 10:10 Pantoprazole Sodium (Protonix) 40 mg DAILY PO 12/07/16 09:00 01/06/17 08:59 12/07/16 10:10 Ascorbic Acid (Vitamin C) 500 mg DAILY PO 12/07/16 09:00 01/06/17 08:59 Al Hydroxide/Mg Hydroxide (Mylanta) 30 ml Q2HR PRN PO heartburn 12/07/16 03:30 01/06/17 03:29 UNV Morphine Sulfate (Morphine Sulfate) 2 mg PRN PRN IV chest pain 12/07/16 03:30 01/06/17 03:29 UNV Potassium Chloride/Dextrose/ Sod Cl 1,000 ml @ 250 mls/hr Q4H IV 12/07/16 03:30 12/07/16 11:29 DC Aspirin (Aspirin) 324 mg STAT STAT PO 12/07/16 03:28 12/07/16 09:05 DC Aspirin (Aspirin Ec) 81 mg DAILY PO 12/07/16 09:00 01/06/17 08:59 12/07/16 10:10 Morphine Sulfate (Ms Contin) 15 mg OT ONCE PO 12/07/16 09:00 12/07/16 09:06 DC 12/07/16 10:11 Ipratropium [place] (Atrovent) 0.5 mg RTQ6 IH 12/07/16 15:00 01/06/17 05:59 Loratadine (Claritin) 10 mg STK-MED ONCE .ROUTE 12/07/16 07:06 12/07/16 09:06 DC Aspirin (Aspirin Ec) 81 mg STK-MED ONCE .ROUTE 12/07/16 07:06 12/07/16 09:07 DC Folic Acid (Folic Acid) 1 mg STK-MED ONCE PO 12/07/16 07:06 12/07/16 09:07 DC Pantoprazole Sodium (Protonix) 40 mg STK-MED ONCE PO 12/07/16 07:06 12/07/16 09:07 DC Quetiapine Fumarate (Seroquel) 25 mg STK-MED ONCE .ROUTE 12/07/16 07:06 12/07/16 09:07 DC Haloperidol (Haldol) 5 mg Q4HR PRN PO AGITATION 12/07/16 12:00 01/06/17 00:29 Haloperidol Lactate (Haldol) 5 mg Q4HR PRN IM AGITATION 12/07/16 12:00 01/06/17 00:29 Lorazepam (Ativan) 1 mg Q4HR PRN IM AGITATION 12/07/16 12:00 01/06/17 00:59 Lorazepam (Ativan) 1 mg Q4HR PRN PO AGITATION 12/07/16 12:00 01/06/17 00:29 Scheduled Ascorbic Acid (Vitamin C), 500 MG PO DAILY, (Reported) Duloxetine Hcl (Cymbalta), 60 MG PO DAILY, (Reported) Fluticasone/Salmeterol (Advair 250-50 Diskus), 1 EACH IH BID, (Reported) Folic Acid (Folic Acid), 1 MG PO DAILY, (Reported) Gabapentin (Gabapentin), 300 MG PO HS, (Reported) Ipratropium [place] (Ipratropium [place]), 0.5 MG IH Q6HR, (Reported) Lactulose (Lactulose), 20 GM PO Q8HR, (Reported) Loratadine (Claritin), 10 MG PO DAILY, (Reported) Morphine Sulfate (Morphine Sulfate), 10 MG PO Q6, (Reported) Pantoprazole Sodium (Pantoprazole Sodium), 40 MG PO DAILY, (Reported) Triamcinolone Acetonide (Triamcinolone Acetonide), 15 GM TP BID, (Reported) Scheduled PRN Albuterol Sulfate (Albuterol Sulfate), 2.5 MG IH Q4 PRN for WHEEZING, (Reported) Discontinued Medications Amitriptyline Hcl (Amitriptyline Hcl), 100 MG PO HS, (Reported) Discontinued Reason: Discontinue Quetiapine Fumarate (Seroquel), 25 MG PO BID, (Reported) Discontinued Reason: Discontinue Course Blood Pressure Systolic: 96 Blood Pressure Diastolic: 60 Blood Pressure Mean: 72 Plan Problems: (1) Hypomagnesemia Status: Acute ICD Code: E83.42 - Hypomagnesemia SNOMED: 785671906 (2) Severe protein-calorie malnutrition Status: Acute ICD Code: E43 - Unspecified severe protein-calorie malnutrition SNOMED: 619822729 (3) Polysubstance abuse Permanent Comment: history of cocaine and other substance abuse per medical records. On the submission is screening drug screen test only showed opioids. However the screening test is not particularly reliable Last Edited By: Guerita Suh MD on Dec 07, 2016 04:18 Status: Acute ICD Code: F19.10 - Other psychoactive substance abuse, uncomplicated SNOMED: 264118866 (4) Chronic hepatitis B with cirrhosis Status: Chronic ICD Code: B18.1 - Chronic viral hepatitis B without delta-agent; K74.60 - Unspecified cirrhosis of liver SNOMED: 33371476, 170600542 (5) Cirrhosis of liver without ascites Status: Chronic ICD Code: K74.60 - Unspecified cirrhosis of liver SNOMED: 80402135 (6) Hypokalemia Permanent Comment: noted in the emergency room. Patient was given potassium for repletion. Recheck BMP when it is safe to do so. Last Edited By: Guerita Suh MD on Dec 07, 2016 04:18 Status: Acute ICD Code: E87.6 - Hypokalemia SNOMED: 26242610 (7) Bipolar 1 disorder Status: Acute ICD Code: F31.9 - Bipolar disorder, unspecified SNOMED: 186542351 (8) Psychosis Status: Acute ICD Code: F29 - Unspecified psychosis not due to a substance or known physiological condition SNOMED: 07729481 (9) Violent behavior Status: Acute ICD Code: R45.6 - Violent behavior SNOMED: 399371296 (10) Behavior problem, adult Status: Acute ICD Code: F69 - Unspecified disorder of adult personality and behavior SNOMED: 865070950428038 (11) Threatening to self Permanent Comment: psychotic. Does not know limits. Aggressive and threatening to everyone around him. fought with police officers. Last Edited By: Guerita Suh MD on Dec 07, 2016 04:17 Status: Acute ICD Code: R45.89 - Other symptoms and signs involving emotional state SNOMED: 038785741 (12) Threatening to others Status: Acute ICD Code: R45.89 - Other symptoms and signs involving emotional state SNOMED: 047257040 (13) At risk for elopement Status: Acute ICD Code: Z91.89 - Other specified personal risk factors, not elsewhere classified SNOMED: 459764184 (14) Foreign body (FB) in soft tissue Status: Acute ICD Code: M79.5 - Residual foreign body in soft tissue SNOMED: 867378409 (15) Electric shock caused by Taser used in legal intervention Permanent Comment: tasered deployed twice in what appeared to be the chest area Last Edited By: Guerita Suh MD on Dec 07, 2016 04:15 Status: Acute ICD Code: T75.4XXA - Electrocution, initial encounter; Y35.893A - Legal intervention involving other specified means, suspect injured, initial encounter SNOMED: 124249864, 418466697, 610566835 (16) Hypoglycemia Permanent Comment: questionable hypoglycemia [address] Rodríguez recheck one of the safe to do so. Give IV fluids with D5 half normal saline with the safe to do so Last Edited By: Guerita Suh MD on Dec 07, 2016 04:16 Status: Acute ICD Code: E16.2 - Hypoglycemia, unspecified SNOMED: 069285066 Discharge Date: Dec 07, 2016 Dicharge DX: Bipolar 1 disorder with psychosis, violent threat to others Discharge Disposition: Stable Problem Qualifiers (1) Electric shock caused by Taser used in legal intervention: Encounter type: initial encounter Qualified Codes: T75.4XXA - Electrocution, initial encounter; Y35.893A - Legal intervention involving other specified means , suspect injured, initial encounter GUERITA SUH MD Dec 07, 2016 14:09
[2016-12-07 14:10] VITALS: BP 96/60
--- NOTE | 2016-12-07 14:10 | NUR ---
Off unit Pt transported off unit via w/c with [employer]. Pt cooperative @ this time, no s/s of distress noted.
[2016-12-07] MEDS ORDERED: ATROVENT IH SCH (15:00)
--- NOTE | 2016-12-07 20:13 | DSH ---
DATE OF DISCHARGE: 12/07/2016 HOSPITAL COURSE: As outlined in admission dictation. The patient was a retirement resident at [facility] in [place] who called our director of social work in the hospital to see if he was acceptable as a psychiatric patient on the [facility] unit. Minimal information was given other than the fact that he was bipolar and manic and had psychotic symptoms. No information was given at that time about his violent behavior or his history of polysubstance abuse. He was given medication after he was in the Emergency Room. It should be noted that he required 5 police officers and tasing twice to get him into the Emergency Room as he escaped from the Emergency Room and was violent. Again, none of this information was conveyed to this physician or to the [facility] about his behavior. He was given Haldol and Thorazine and Ativan, which did decrease his psychotic agitation. At this point, we have discussed with the judges office what the disposition should be with this patient. They have contacted the police in [place] and have notified them that they need to come and pick this patient up and expedite getting him to the [facility] through their County. They agreed to this and we are awaiting their arrival. Clearly, this patient is not appropriate for the [facility] as he represents a risk or danger to the staff and the other patients as they are geriatric. DISPOSITION AND DIAGNOSES: AXIS I: 1. Bipolar disorder, manic, psychotic. 2. History of polysubstance abuse. AXIS II: Deferred. AXIS III: Refer to past medical history. AXIS IV: Stress of mental illness. AXIS V: Current global assessment of functioning of 25. TREATMENT PLAN: 1. This patient was admitted involuntarily and based on his past history, which was not conveyed to this hospital or this physician, probably likely inappropriately based on his violent behavior. 2. He is on medications as outlined above. 3. He is a candidate for state hospitalization with a locked unit and security. 4. This patient will be picked up by the [place] police and taken to the [facility]. Hernan Meier MD DR: JEMMA/abbey JOB# [id number]
[2016-12-07] MEDS ORDERED: NEURONTIN PO SCH (21:00)
[2016-12-07] MEDS ORDERED: ELAVIL PO SCH (21:00)
[2016-12-10 17:14] LABS: OPIATES Positive (.)
== END 2016-12-07 14:10 | disposition short-term general hospital (02) | DRG 885 ==
LOC: ER 17:11 → CMPBEDREQ 20:41 → EEVIPCON 21:08 → GP 21:08
PROVIDERS: ADMIT Psychiatry & Neurology Psychiatry; ATTEND Psychiatry & Neurology Psychiatry
DX: F31.9 Bipolar disorder, unspecified (principal); E43 Unspecified severe protein-calorie malnutrition; B18.1 Chronic viral hepatitis B without delta-agent; E16.2 Hypoglycemia, unspecified; E87.6 Hypokalemia; F19.10 Other psychoactive substance abuse, uncomplicated; F29 Unspecified psychosis not due to a substance or known physiological condition; I10 Essential (primary) hypertension; J44.9 Chronic obstructive pulmonary disease, unspecified; K21.9 Gastro-esophageal reflux disease without esophagitis; K74.60 Unspecified cirrhosis of liver; M79.5 Residual foreign body in soft tissue; T75.4XXA Electrocution, initial encounter; W86.8XXA Exposure to other electric current, initial encounter; F17.200 Nicotine dependence, unspecified, uncomplicated; E83.42 Hypomagnesemia; Z88.6 Allergy status to analgesic agent; Z79.899 Other long term (current) drug therapy; Z59.0 Homelessness
CPT/HCPCS: 36415; 71010; 80048; 80053; 80061; 80164; 80178; 80307; 81002; 82550; 82553; 82607; 83036; 83615; 83735; 83880; 84100; 84443; 84484; 84550; 85025; 85610; 85730; 86140; 93005; 99285; G0481; J1200; J2060; J3230; J3480; J7644; J1630

== ENCOUNTER 2019-03-06 11:50 | Emergency (ER) | payer MEDICARE, OTHER ==
[~2019-03-06] VITALS: Ht 175.3 cm; Wt 75.7 kg
[2019-03-06 11:50] VITALS: BP 94/57
[~2019-03-06 11:50] MED LIST: ALBU2.5V2 IH; AMIT100T PO; AMIT50TA PO; DULO60CA7 PO; FLUT1DIS3 IH; FOLI1TAB21 PO; GABA300C10 PO; IPRA0.2S34 IH; LACT10SO PO; LORA10TA75 PO; MORP20SO PO; PANT40TA5 PO; QUET25TA5 PO; TRIA15CR TP; [UNRECOGNIZED DRUG - CODE] PO
--- NOTE | 2019-03-06 11:50 | NUR ---
ARRIVAL PATIENT ARRIVED VIA EMS TRANSFERRED TO [facility]. VITAL SIGNS OBTAINED AND PLACED ON HEAD SUGAR REPROCESS OPERATOR. DR. ABRAHAM AT BEDSIDE. PATIENT HAS NOT BEEN ACTING LIKE HIMSELF WAS FOUND ON THE FLOOR NAKED AND INCONTINENT OF STOOL. FEBRILE WITH ABNORMAL VITAL SIGNS. WAS PLACED ON O2 BY EMS AND PATIENT DOES NOT NORMALLY WEAR O2. REPORT RECEIVED FROM [facility].
[2019-03-06] MEDS ORDERED: DECADRON ONE (12:34)
[2019-03-06] MEDS ORDERED: DUONEB 0.5 MG-3 MG/3 ML SOLN IH ONE (12:34)
[2019-03-06 12:37] LABS: BASOPHIL % 0.3 % (0.0-0.2); EOSINOPHIL # 0.1 10^3/uL (0.0-0.2); EOSINOPHIL % 1.3 % (0.0-5.0); HEMOGLOBIN 12.3 g/dL (13.9-16.3); LYMPHOCYTES % 13.1 % (24.0-44.0); MEAN CELL HGB 32.2 pg (26-34); MEAN CELL HGB CONCENTRATION 32.9 g/dL (33-37); MEAN CORP VOLUME 97.9 fL (78-100); MEAN PLATELET VOLUME 11.7 fL (7.8-11.0); MONOCYTES # 0.9 10^3/uL (0.3-0.8); MONOCYTES % 11.1 % (5.0-12.0); NEUTROPHIL # 5.9 10^3/uL (1.8-7.7); NEUTROPHILS % 73.8 % (41.0-85.0); RED CELL DISTRIBUTION WIDTH 16.6 % (11.5-14.5); WHITE BLOOD CELL 7.9 10^3/uL (4.5-11.0)
[2019-03-06] MEDS ORDERED: DUONEB 0.5 MG-3 MG/3 ML SOLN IH STA (12:44)
[2019-03-06 12:47] LABS: ABG PCO2 34.1 mmHg (35.0-45.0); ABG PH 7.383 (7.350-7.450); BE(B) -4.4 mmol/L (-2.0-2.0); HCO3act 19.9 mmol/L (22.0-26.0); pO2 64.8 mmHg (80.0-100.0)
--- NOTE | 2019-03-06 12:55 | DIREP ---
PROCEDURE:CHEST 1 VIEW COMPARISON:[facility], CR, XRAY CHEST SINGLE VW, 11/30/2017, 06:31 PM. INDICATIONS:AMS FINDINGS: LUNGS/PLEURA:There are diffuse and chronic bilateral interstitial changes throughout both lungs with infiltrate in the right mid lung field. VASCULATURE:Normal. Unremarkable pulmonary vasculature. CARDIAC:Normal. No cardiac silhouette abnormality or cardiomegaly. MEDIASTINUM:Normal. No visible mass or adenopathy. BONES:Normal. No fracture or visible bony lesion. OTHER:Negative. CONCLUSION:There are findings consistent with diffuse bilateral chronic interstitial lung disease and/or pulmonary fibrosis with infiltrate in the right mid lung field. Dictated by: King Barr M.D. on 03/06/2019 at 12:51 PM
[2019-03-06 13:00] VITALS: BP 122/55
[2019-03-06] MEDS ORDERED: DECADRON IH ONE (13:00)
[2019-03-06 13:07] LABS: ALANINE AMINOTRANSFERASE(ML) 29 U/L (12-78); ALKALINE PHOSPHATASE 87 U/L (50-136); ASPARTATE AMINO TRANSFERASE 62 U/L (0-35); CALCIUM 7.6 mg/dL (8.4-10.5); CARBON DIOXIDE 19.4 mmol/L (20.0-32); GLUCOSE 106 mg/dL (70-110)
--- NOTE | 2019-03-06 13:12 | ER.PDOC ---
General Chief Complaint: Altered Mental Status Stated Complaint: AMS Time seen by : 13:08 Source: patient Exam Limitations: no limitations History of Present Illness Initial Comments AMS, fever, abdominal pain and distension, low Oxygen and blood pressure this morning. He also had nausea/vomiting and diarrhea today. Character of AMS: disoriented Usually: orientedx3 Associated Symptoms: fever/chills, abdominal pain, nausea/vomiting Allergies: Coded Allergies: acetaminophen (Verified Allergy, Mild, 12/06/16) PT CAN'T TAKE TYLENOL DUE TO CIRRHOSIS Home Meds Active Scripts Thiamine Mononitrate (VITAMIN B-1) 100 Mg Tablet, 1 TAB PO QD for 30 Days, #30 TAB 0 Refills Prov:DULCE ABRAHAM MD 03/06/19 Risperidone (RISPERIDONE) 2 Mg Tablet, 1 TAB PO DAILY24, #30 TAB 1 Refill Prov:DULCE ABRAHAM MD 03/06/19 Risperidone (RISPERIDONE) 1 Mg Tablet, 1 TAB PO HS, #30 TAB 1 Refill Prov:DULCE ABRAHAM MD 03/06/19 Potassium Chloride (POTASSIUM CHLORIDE) 10 Meq Tab.er.prt, 1 TAB PO DAILY, #30 TAB 5 Refills Prov:DULCE ABRAHAM MD 03/06/19 Multivitamin (MULTIPLE VITAMINS) 1 Each Tablet, 1 TAB PO QD for 30 Days, #30 TAB 0 Refills Prov:DULCE ABRAHAM MD 03/06/19 Cetirizine Hcl (CETIRIZINE HCL) 10 Mg Tablet, 1 TAB PO DAILY, #30 TAB 5 Refills Prov:DULCE ABRAHAM MD 03/06/19 Gabapentin (NEURONTIN) 300 Mg Capsule, 1 CAP PO TID, #90 CAP 3 Refills Prov:DULCE ABRAHAM MD 03/06/19 Reported Medications Zolpidem Tartrate (ZOLPIDEM TARTRATE) 10 Mg Tablet, 1 TAB PO HS, #30 TAB 2 Refills 03/06/19 Lactulose (LACTULOSE) 10 Gm/15 Ml Solution, 20 GM PO Q8HR 12/06/16 Ascorbic Acid (VITAMIN C) 500 Mg Tab.chew, 500 MG PO DAILY, TAB.CHEW 12/06/16 Folic Acid (FOLIC ACID) 1 Mg Tablet, 1 MG PO DAILY, TABLET 12/06/16 Ipratropium Flushing (IPRATROPIUM BROMIDE) 0.2 Mg/1 Ml Solution, 0.5 MG IH Q6HR 12/06/16 Fluticasone/Salmeterol (ADVAIR 250-50 DISKUS) 1 Each Disk.w.dev, 1 EACH IH BID 12/06/16 Discontinued Reported Medications Morphine Sulfate (MORPHINE SULFATE) 20 Mg/5 Ml Solution, 10 MG PO Q6 12/06/16 Triamcinolone Acetonide (TRIAMCINOLONE ACETONIDE) 15 Gm Cream..g., 15 GM TP BID 12/06/16 Pantoprazole Sodium (PANTOPRAZOLE SODIUM) 40 Mg Tablet.dr, 40 MG PO DAILY 12/06/16 Duloxetine Hcl (CYMBALTA) 60 Mg Capsule.dr, 60 MG PO DAILY 12/06/16 Loratadine (CLARITIN) 10 Mg Tablet, 10 MG PO DAILY, TABLET 12/06/16 Albuterol Sulfate (ALBUTEROL SULFATE) 2.5 Mg/3 Ml Vial.neb, 2.5 MG IH Q4 PRN for WHEEZING 12/06/16 Discontinued Scripts Quetiapine Fumarate (SEROQUEL) 25 Mg Tablet, 50 MG PO BID for 30 Days, #30 TABLET Prov:RICKY WARD MD 12/07/16 Amitriptyline Hcl (AMITRIPTYLINE HCL) 50 Mg Tablet, 100 MG PO HS for 30 Days, #30 TABLET Prov:RICKY WARD MD 12/07/16 Past Medical History Medical History: congestive heart failure, other (Liver cirrhosis) Surgical History: hip, knee, shoulder Social History Drug Use: none Review of Systems Constitutional: see HPI Respiratory: cough Cardiovascular: no symptoms reported Gastrointestinal: see HPI Genitourinary: no symptoms reported Musculoskeletal: no symptoms reported All Other Systems: Reviewed and Negative Physical Exam General Appearance: alert, no distress HEENT: no apparent trauma Neuro/Psych: oriented x3, nml speech/cognition, nml mood/affect Cranial Nerves: nml as tested Peripheral Exam: motor nml, sensation nml, reflexes nml Neck: supple, non-tender, no carotid bruit Respiratory: no resp distress, rhonchi CVS: reg rate & rhythm, heart sounds nml, tachycardia Abdomen: tenderness (generalized with distension) Skin: color nml, no rash, warm/dry Results/Orders Results/Orders Orders - DULCE ABRAHAM MD Cbc With Auto Diff (03/06/19 12:16) Comprehensive Metabolic Panel (03/06/19 12:16) Creatine Kinase (03/06/19 12:16) PT (03/06/19 12:16) Partial Thromboplastin Time. (03/06/19 12:16) Xr Chest 1v (03/06/19 12:16) Ct Head Wo Contrast (03/06/19 12:16) Urinalysis (03/06/19 12:16) Ekg-Routine (03/06/19 12:16) Troponin I (03/06/19 12:16) Influenza A&B (03/06/19 12:16) Lipase (03/06/19 12:16) Ct Abd/Pel With Iv Contrast (03/06/19 12:16) Arterial Blood Gas (03/06/19 12:16) Ipratropium/Albuterol Sulfate (Duoneb 0. (03/06/19 12:34) Dexamethasone Sodium Phosphate (Decadron (03/06/19 12:34) Ipratropium/Albuterol Sulfate (Duoneb 0. (03/06/19 12:44) Dexamethasone Sodium Phosphate (Decadron (03/06/19 13:00) Blood Culture (03/06/19 13:06) 0.9 % Sodium Chloride (Ns 1000ml) (03/06/19 13:33) Urine Culture (03/06/19 13:54) 0.9 % Sodium Chloride (Ns 1000ml) (03/06/19 13:59) Ammonia (03/06/19 14:23) Levofloxacin 750mg/D5w 100ml (Levaquin) (03/06/19 14:31) Vital Signs Date Time Temp Pulse Resp B/P (MAP) Pulse Ox O2 Delivery O2 Flow Rate FiO2 03/06/19 13:08 100.2 108 24 92 Nasal [place] 03/06/19 12:47 80 20 95 03/06/19 12:42 20 92 03/06/19 12:41 108 24 92 03/06/19 11:50 100.2 108 24 94/57 (69) 92 Nasal [place] 2.00 03/06/19 11:50 100.2 108 24 Administered Medications Medications (Trade) Dose Ordered Sig/Mohini Route PRN Reason Start Time Stop Time Status Last Admin Dose Admin Albuterol/ Ipratropium (Duoneb 0.5 Mg-3 Mg/3 ml Soln) 3 ml STAT STAT IH 03/06/19 12:44 03/06/19 12:45 UNV 03/06/19 12:47 3 ML Sodium Chloride 2,273 ml @ 1,136.5 mls/ hr OT STAT IV 03/06/19 13:33 03/06/19 15:32 03/06/19 14:28 1,136.5 MLS/HR Laboratory Tests Test 03/06/19 12:27 03/06/19 12:36 03/06/19 12:50 03/06/19 13:30 White Blood Count 7.9 10^3/uL (4.5-11.0) Red Blood Count 3.82 10^6/uL (4.50-5.90) L Hemoglobin 12.3 g/dL (13.9-16.3) L Hematocrit 37.4 % (37.0-53.0) Mean Corpuscular Volume 97.9 fL (78-100) Mean Corpuscular Hemoglobin 32.2 pg (26-34) Mean Corpuscular Hemoglobin Concent 32.9 g/dL (33-37) L Red Cell Distribution Width 16.6 % (11.5-14.5) H Platelet Count 61 10^3/uL (150-400) L Mean Platelet Volume 11.7 fL (7.8-11.0) H Neutrophils (%) (Auto) 73.8 % (41.0-85.0) Lymphocytes (%) (Auto) 13.1 % (24.0-44.0) L Monocytes (%) (Auto) 11.1 % (5.0-12.0) Neutrophils # (Auto) 5.9 10^3/uL (1.8-7.7) Lymphocytes # (Auto) 1.0 10^3/uL (1.0-4.8) Monocytes # (Auto) 0.9 10^3/uL (0.3-0.8) H Absolute Immature Granulocyte (auto 0.03 10^3 u/L (0-2) Immature Granulocytes % 0.40 % (0.00-0.50) Eosinophils % 1.3 % (0.0-5.0) Basophils % 0.3 % (0.0-0.2) H Basophils # 0.0 10^3/uL (0.0-0.1) Eosinophil Count 0.1 10^3/uL (0.0-0.2) Prothrombin Time 15.3 SEC (9.4-11.5) H Prothrombin Time INR (Non-Therap) 1.5 Activated Partial Thromboplast Time 32.2 SEC (24.67-30.72) Sodium Level 144 mmol/L (132-145) Potassium Level 3.5 mmol/L (3.6-5.2) L Chloride Level 112.0 mmol/L (96-109) H Carbon Dioxide Level 19.4 mmol/L (20.0-32) L Anion Gap 16.1 Blood Urea Nitrogen 9 mg/dL (7-18) Creatinine 1.06 mg/dL (0.59-1.40) Estimated GFR () 84.8 (>/=60) BUN/Creatinine Ratio 8.0 Glucose Level 106 mg/dL (70-110) Calcium Level 7.6 mg/dL (8.4-10.5) L Total Bilirubin 1.8 mg/dL (0.2-1.0) H Aspartate Amino Transferase (AST) 62 U/L (0-35) H Alanine Aminotransferase (ALT) 29 U/L (12-78) Alkaline Phosphatase 87 U/L (50-136) Total Creatine Kinase 110 U/L (39-308) Troponin I < 0.02 ng/mL (0.00-0.05) Total Protein 5.3 g/dL (6.4-8.2) L Albumin 2.4 g/dL (3.4-5.0) L Globulin 2.9 Lipase 98 U/L (114-286) L Blood Gas Sample Site RT RADIAL ARTERY Blood pH 7.383 (7.350-7.450) Blood Gas PCO2 34.1 mmHg (35.0-45.0) L Blood Gas PO2 64.8 mmHg (80.0-100.0) L Blood Gas HCO3 19.9 mmol/L (22.0-26.0) L Blood Gas Base Excess -4.4 mmol/L (-2.0-2.0) L Alan Test POSITIVE Arterial Blood Oxygen Saturation 92.0 % (94.0-97.00) L Deoxyhemoglobin 7.8 % (0.0-5.0) H Carboxyhemoglobin 1.5 % (0.0-3.9) Methemoglobin 0.4 % (0.00-5.0) Total Hemoglobin 12.8 % (12.0-17.8) Total Oxygen Concentration 16.3 % (13.5-17.5) Lactic Acid (Blood Gas) 1.9 mmol/1 (0.50-2.0) Blood Gas Temperature 37 Oxygen Delivery Method NASAL CANNULA FiO2 28 % (20-101) Bicarbonate 20.9 mmol/L (23-27) L Influenza Type A Antigen NEGATIVE (NEG) Influenza B Immunofluorescence NEGATIVE (NEG) Urine Collection Type VOID Urine Color JUANITA (YELLOW) Urine Appearance CLOUDY (CLEAR) H Urine Bilirubin 1 MG/DL (NEGATIVE) H Urine Ictotest POSITIVE (NEGATIVE) Urine Ketones 5 mg/dL (NEGATIVE) H Urine Specific [place] 1.010 (1.005-1.035) Urine pH 6 (5.0-6.0) Urine Protein 15 mg/dL (NEGATIVE) H Urine Urobilinogen 8.0 (NEGATIVE) H Urine Nitrate NEGATIVE (NEGATAIVE) Urine Leukocyte Esterase 25 /uL TRACE (NEGATIVE) Urine Blood 10 TR (NEGATIVE) H Urine RBC 0-2 RBC/HPF (NONE SEEN) Urine WBC 5-10 WBC/HPF (0-2) H Urine Squamous Epithelial Cells FEW #/HPF (FEW) Urine Bacteria FEW (NONE SEEN) H Urine Glucose NORMAL (NEGATIVE) Test 03/06/19 14:30 Ammonia 33 umol/L (11-35) Progress Progress CT abdomen/pelvis: Splenomegaly. Trace perihepatic ascites. Moderate free fluid within the pelvis. CXR: There are findings consistent with diffuse bilateral chronic interstitial lung disease and/or pulmonary fibrosis with infiltrate in the right mid lung field. EKG/XRAY/CT/US EKG Comments: Sinus tachycardia XRAY: chest CT Comments: No acute intracranial abnormality Course Sepsis Screening Results: Posi: POSITIVE SEPSIS RISK Vitals & review Data Vital Sign - Last 24 Hours 03/06/19 03/06/19 03/06/19 03/06/19 11:50 11:50 12:41 12:42 Temp 100.2 100.2 Pulse 108 108 108 Resp 24 24 24 20 B/P (MAP) 94/57 (69) Pulse Ox 92 92 92 O2 Delivery Nasal [place] O2 Flow Rate 2.00 10/29/19 10/29/19 12:47 13:08 Temp 100.2 Pulse 80 108 Resp 20 24 Pulse Ox 95 92 O2 Delivery Nasal [place] Laboratory Tests Test 03/06/19 12:27 03/06/19 12:36 03/06/19 12:50 03/06/19 13:30 White Blood Count 7.9 10^3/uL Red Blood Count 3.82 10^6/uL Hemoglobin 12.3 g/dL Hematocrit 37.4 % Mean Corpuscular Volume 97.9 fL Mean Corpuscular Hemoglobin 32.2 pg Mean Corpuscular Hemoglobin Concent 32.9 g/dL Red Cell Distribution Width 16.6 % Platelet Count 61 10^3/uL Mean Platelet Volume 11.7 fL Neutrophils (%) (Auto) 73.8 % Lymphocytes (%) (Auto) 13.1 % Monocytes (%) (Auto) 11.1 % Neutrophils # (Auto) 5.9 10^3/uL Lymphocytes # (Auto) 1.0 10^3/uL Monocytes # (Auto) 0.9 10^3/uL Absolute Immature Granulocyte (auto 0.03 10^3 u/L Immature Granulocytes % 0.40 % Eosinophils % 1.3 % Basophils % 0.3 % Basophils # 0.0 10^3/uL Eosinophil Count 0.1 10^3/uL Prothrombin Time 15.3 SEC Prothrombin Time INR (Non-Therap) 1.5 Activated Partial Thromboplast Time 32.2 SEC Sodium Level 144 mmol/L Potassium Level 3.5 mmol/L Chloride Level 112.0 mmol/L Carbon Dioxide Level 19.4 mmol/L Anion Gap 16.1 Blood Urea Nitrogen 9 mg/dL Creatinine 1.06 mg/dL Estimated GFR () 84.8 BUN/Creatinine Ratio 8.0 Glucose Level 106 mg/dL Calcium Level 7.6 mg/dL Total Bilirubin 1.8 mg/dL Aspartate Amino Transf (AST/SGOT) 62 U/L Alanine Aminotransferase (ALT/SGPT) 29 U/L Alkaline Phosphatase 87 U/L Total Creatine Kinase 110 U/L Troponin I < 0.02 ng/mL Total Protein 5.3 g/dL Albumin 2.4 g/dL Globulin 2.9 Lipase 98 U/L Blood Gas Sample Site RT RADIAL ARTERY Blood Gas pH 7.383 Blood Gas PCO2 34.1 mmHg Blood Gas PO2 64.8 mmHg Blood Gas HCO3 19.9 mmol/L Blood Gas Base Excess -4.4 mmol/L Alan Test POSITIVE Arterial Blood Oxygen Saturation 92.0 % Deoxyhemoglobin 7.8 % Carboxyhemoglobin 1.5 % Methemoglobin 0.4 % Total Hemoglobin 12.8 % Total Oxygen Concentration 16.3 % Lactic Acid (Blood Gas) 1.9 mmol/1 Blood Gas Temperature 37 Oxygen Delivery Method (LAB) NASAL CANNULA FiO2 28 % Bicarbonate 20.9 mmol/L Influenza Type A Antigen NEGATIVE Influenza B Immunofluorescence NEGATIVE Urine Collection Type VOID Urine Color JUANITA Urine Appearance CLOUDY Urine Bilirubin 1 MG/DL Urine Ictotest POSITIVE Urine Ketones 5 mg/dL Urine Specific [place] 1.010 Urine pH 6 Urine Protein 15 mg/dL Urine Urobilinogen 8.0 Urine Nitrate NEGATIVE Urine Leukocyte Esterase 25 /uL TRACE Urine Blood 10 TR Urine RBC 0-2 RBC/HPF Urine WBC 5-10 WBC/HPF Urine Squamous Epithelial Cells FEW #/HPF Urine Bacteria FEW Urine Glucose NORMAL Test 03/06/19 14:30 Ammonia 33 umol/L Current Medications Medications (Trade) Dose Ordered Sig/Mohini PRN Reason Start Time Stop Time Status Last Admin Albuterol/ Ipratropium (Duoneb 0.5 Mg-3 Mg/3 ml Soln) 3 ml STAT STAT 03/06/19 12:44 03/06/19 12:45 UNV 03/06/19 12:47 Levofloxacin/ Dextrose 150 ml @ 100 mls/hr STAT STAT 03/06/19 14:31 03/06/19 16:00 Sodium Chloride 2,273 ml @ 1,136.5 mls/ hr OT STAT 03/06/19 13:33 03/06/19 15:32 03/06/19 14:28 O2 Sat by Pulse Oximetry: 95 Oxygen Flow Rate: 2.00 Departure Time of Disposition: 14:51 Disposition: 02 XFER SHT-TRM HOSP Impression: Primary Impression: Sepsis Additional Impressions: Pneumonia UTI (urinary tract infection) Gastroenteritis Respiratory failure with hypoxia Chronic hepatitis B with cirrhosis Condition: Stable Referrals: PCP,UNKNOWN (PCP) PRIMARY CARE PROVIDER Scripts Thiamine Mononitrate (VITAMIN B-1) 100 Mg Tablet 1 TAB PO QD for 30 Days, #30 TAB 0 Refills Prov: DULCE ABRAHAM MD 03/06/19 Risperidone (RISPERIDONE) 2 Mg Tablet 1 TAB PO DAILY24, #30 TAB 1 Refill Prov: DULCE ABRAHAM MD 03/06/19 Risperidone (RISPERIDONE) 1 Mg Tablet 1 TAB PO HS, #30 TAB 1 Refill Prov: DULCE ABRAHAM MD 03/06/19 Potassium Chloride (POTASSIUM CHLORIDE) 10 Meq Tab.er.prt 1 TAB PO DAILY, #30 TAB 5 Refills Prov: DULCE ABRAHAM MD 03/06/19 Multivitamin (MULTIPLE VITAMINS) 1 Each Tablet 1 TAB PO QD for 30 Days, #30 TAB 0 Refills Prov: DULCE ABRAHAM MD 03/06/19 Cetirizine Hcl (CETIRIZINE HCL) 10 Mg Tablet 1 TAB PO DAILY, #30 TAB 5 Refills Prov: DULCE ARBAHAM MD 03/06/19 Gabapentin (NEURONTIN) 300 Mg Capsule 1 CAP PO TID, #90 CAP 3 Refills Prov: DULCE ABRAHAM MD 03/06/[address] [facility] ED for Dr. Isaac Duration or Time Spent with Pa: 90 mins Critical Care Note Total Time (mins): 90 Problem Qualifiers Primary Impression: Sepsis Sepsis type: sepsis due to unspecified organism Sepsis acute organ dysfunction status: unspecified Qualified Codes: A41.9 - Sepsis, unspecified organism Additional Impressions: Pneumonia Pneumonia type: due to unspecified organism Laterality: unspecified laterality Lung location: unspecified part of lung Qualified Codes: J18.9 - Pneumonia, unspecified organism UTI (urinary tract infection) Urinary tract infection type: site unspecified Hematuria presence: with hematuria Qualified Codes: N39.0 - Urinary tract infection, site not specified; R31.9 - Hematuria, unspecified Respiratory failure with hypoxia Chronicity: acute Qualified Codes: J96.01 - Acute respiratory failure with hypoxia DULCE ABRAHAM MD Mar 06, 2019 13:12
--- NOTE | 2019-03-06 13:23 | PCM.EKG ---
[facility] Test Date: 2019-03-06 Test Time: 12:27:09 Pat Name: MAHENDRA AMARO Department: Patient ID: [id number] Room: Gender: M Gang Pusher: PÉREZ : 1955 Requested By: DULCE ABRAHAM Order Number: [id number] Reading MD: Dulce ABRAHAM Measurements Intervals [place] Rate: 107 P: 54 [place]: 161 QRS: 6 QRSD: 84 T: 38 QT: 356 QTc: 475 Interpretive Statements Sinus tachycardia Borderline low voltage, extremity leads Baseline wander in lead(s) V2 No previous ECG available for comparison Electronically Signed On 03-14-2019 21:29:03 PRACTICE MANAGEMENT CONSULTANT by Dulce ABRAHAM Please click the below link to view image of tracing.
[2019-03-06] MEDS ORDERED: RISP2TAB3 PO (13:27)
[2019-03-06] MEDS ORDERED: ZOLP10TA5 PO (13:27)
[2019-03-06] MEDS ORDERED: CETI10TA18 PO (13:27)
[2019-03-06] MEDS ORDERED: GABA300C PO (13:27)
[2019-03-06] MEDS ORDERED: [UNRECOGNIZED DRUG - CODE] PO (13:27)
[2019-03-06] MEDS ORDERED: POTA10TA31 PO (13:27)
[2019-03-06] MEDS ORDERED: RISP1TAB3 PO (13:27)
[2019-03-06] MEDS ORDERED: [UNRECOGNIZED DRUG - CODE] PO (13:27)
--- NOTE | 2019-03-06 13:29 | NUR ---
UPDATE PATIENT TO CT VIA STRETCHER.
[2019-03-06] MEDS ORDERED: NS IV STA (13:33)
[2019-03-06 13:51] LABS: BILIRUBIN,URINE 1 MG/DL (NEGATIVE)
[2019-03-06 13:53] LABS: APPEARANCE,URINE CLOUDY (CLEAR); UA COLOR AMBER (YELLOW)
[2019-03-06] MEDS ORDERED: NS 1000ML 1,000 ML ONE (13:59)
--- NOTE | 2019-03-06 14:07 | DIREP ---
PROCEDURE:CT HEAD WITHOUT CONTRAST TECHNIQUE:Axial cuts were obtained through the head, without intravenous contrast material. The images were viewed at brain and bone settings. COMPARISON:[facility], CT, CT HEAD BRAIN W/O CONTRAST, 06/24/2017, 10:35 AM. INDICATIONS:AMS FINDINGS: VENTRICLES:Normal. CEREBRUM:Previous old left basal ganglia lacunar infarct not identified on this study. No intracranial hemorrhage, large territory infarct or space-occupying mass. CEREBELLUM:Normal. BRAINSTEM:Normal. SKULL:Normal. SINUSES:Normal. OTHER:None CONCLUSION:No acute intracranial abnormality. Dictated by: Lakeisha Amado MD on 03/06/2019 at 02:03 PM
--- NOTE | 2019-03-06 14:11 | DIREP ---
PROCEDURE:CT ABDOMEN/PELVIS W/ CONTRAST COMPARISON:[facility], CT, CT ABD/PELVIS W/O, 06/24/2017, 10:48 AM. INDICATIONS:Generalized abdominal pain TECHNIQUE:Axial images were created through the abdomen and pelvis with non-ionic intravenous contrast material. No oral contrast was administered. Sagittal and coronal reconstructions were performed from source images. FINDINGS: LUNG BASES:Regions of basilar fibrosis, and honeycombing. This is greater toward the right side. No pneumothorax or effusion identified LIVER:Trace perihepatic ascites. BILIARY:Normal. No visible dilatation or calcification. PANCREAS:Normal. No lesion, fluid collection, ductal dilatation, or atrophy. SPLEEN:Spleen is enlarged. ADRENALS:Normal. No mass or enlargement. URINARY TRACT:Normal. No focal lesions or hydronephrosis. AORTA/VASCULAR:Normal. No aneurysm. RETROPERITONEUM:Normal. No mass or adenopathy. BOWEL/MESENTERY:There is no intestinal obstruction, free air or mesenteric inflammatory changes. ABDOMINAL WALL:Normal. No mass or hernia. PELVIC ORGANS:Moderate amounts of free fluid in the pelvis. BONES:Hardware involving both proximal femurs. Moderate L1 compression fracture, new when compared with previous examination OTHER:Negative. CONCLUSION:Splenomegaly. Trace perihepatic ascites. Moderate free fluid within the pelvis. Dictated by: Berny Salomon MD on 03/06/2019 at 02:04 PM
--- NOTE | 2019-03-06 14:28 | NUR ---
UPDATE DR. ABRAHAM ON THE PHONE WITH DR. JOLLEY ABOUT ADMISSION.
[2019-03-06] MEDS ORDERED: LEVAQUIN 150 ML IV STA (14:31)
--- NOTE | 2019-03-06 14:33 | NUR ---
UPDATE DR. JOLLEY WANTS TO TRANSFER PATIENT OUT.
--- NOTE | 2019-03-06 14:47 | NUR ---
[facility] IS ACCEPTING PATIENT ON A CASE TO CASE BASIS, NO CRITICAL CARE BEDS, CAN PUT PATIENT ON A WAITING LIST, DOCTOR JARAD WILL ATTEMPT TO CONTACT [facility].
--- NOTE | 2019-03-06 14:48 | NUR ---
[facility] DOCTOR JARAD ON THE PHONE WITH [facility], DOCTOR JERALD ACCEPTED AND ALEK RAHMAN IS THE AOD
[2019-03-06] MEDS ORDERED: LEVAQUIN 150 ML IV ONE (14:50)
[2019-03-06 14:57] VITALS: BP 111/64
--- NOTE | 2019-03-06 15:01 | NUR ---
DISPATCH DISPATCH NOTIFIED OF PATIENT TRANFER
--- NOTE | 2019-03-06 15:02 | NUR ---
[facility] HERE FOR TRANALICIA.
--- NOTE | 2019-03-06 15:10 | NUR ---
DEPART REPORT GIVEN TO EMS RELINQUISHED CARE. O2 INFUSING AT 2-3LPM PER NC IV INFUSING WITHOUT COMPLICATION. PATIENT ALERT AND ORIENTED AND IN NO DISTRESS.
--- NOTE | 2019-03-06 15:37 | NUR ---
REPORT REPORT CALLED TO CARMELA AT [facility].
== END 2019-03-06 15:10 | disposition short-term general hospital (02) ==
LOC: ER 11:50 → EDBD 11:50 → ER 15:10
DX: A41.9 Sepsis, unspecified organism (principal); B18.1 Chronic viral hepatitis B without delta-agent; I50.9 Heart failure, unspecified; J18.9 Pneumonia, unspecified organism; J96.01 Acute respiratory failure with hypoxia; K52.9 Noninfective gastroenteritis and colitis, unspecified; K74.60 Unspecified cirrhosis of liver; N39.0 Urinary tract infection, site not specified; Z79.899 Other long term (current) drug therapy
CPT/HCPCS: 36415; 70450; 71045; 74177; 80053; 81000; 82140; 82550; 82803; 83690; 84484; 85025; 85610; 85730; 87040 ×2; 87086; 87804 ×2; 93005; 94640; 96365; 99291; 99292; J1100; J1956; J7030; J7620; Q9965